=== PATIENT | female | born 1980 | race Caucasian/White ===

== ENCOUNTER 2016-08-01 19:37 | Emergency (ER) | payer OTHER ==
[~2016-08-01] VITALS: Ht 157.5 cm; Wt 90.7 kg
[~2016-08-01 19:37] MED LIST: ASPI-586 PO; FLUO10CA19 PO; HYDR-700 PO; PRD20T PO
--- OUTSIDE RECORDS SUMMARY | 2016-08-01 19:42 | XMS REPORT ---
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 Name Role Phone JAMARCUS OSORIO CP Unavailable Allergies, Adverse Reactions, Alerts Substance Reaction Event Type Zofran itching/ swelling Drug Allergy Prilosec itching/ swelling Drug Allergy Penicillin G Sodium stops heart Drug Allergy Lortab itching/ swelling Drug Allergy Problems Problem Type Condition Code Onset Dates Condition Status Assessment Headache, unspecified headache type R51 Active Assessment Acute non-recurrent frontal sinusitis J01.10 Active Assessment Weakness R53.1 Active Medications Medication Code System Code Instructions Start Date End Date Status Dosage Ibuprofen [facility] [address]-09 200 MG Orally every 6 hrs 1 tablet as needed Azithromycin [facility] [address]-20 250 MG Orally Once a day May 22, 2016 May 27, 2016 2 tablets on the first day, then 1 tablet daily for 4 days Procedures Procedure Coding System Code Date Office Visit, Est Pt., Level 3 CPT-4 36864 May 22, 2016 INFLUENZA ASSAY W/OPTIC CPT-4 62128 May 22, 2016 Vital Signs Date/Time: May 22, 2016 Cardiac Monitoring Heart Rate 80 bpm Weight 189.8 lbs Height 62 in BMI 34.71 Index Blood Pressure Diastolic 60 mmHg Blood Pressure Systolic 100 mmHg Results Name Result Date Reference Range Unit Abnormality Flag INFLUENZA A & B (IN HOUSE) ----Exp date [id number] ----INFLUENZA A negative [id number] ----INFLUENZA B negative [id number] ----Control + [id number] ----Lot # [id number] Summary Purpose [employer] Submission
[2016-08-01] MEDS ORDERED: LACTATED RINGERS 1,000 ML IV ONE (20:06)
[2016-08-01] MEDS ORDERED: FAMOTIDINE 20MG/2ML IV (PEPCID) IV STA ×2 (20:06→20:07)
[2016-08-01] MEDS ORDERED: NS IV 1000 ML 1,000 ML IV ONE (20:07)
[2016-08-01] MEDS ORDERED: PROMETHAZINE INJ 25 MG/ML (PHENERGAN) AMP IVP STA ×2 (20:19→22:02)
--- NOTE | 2016-08-01 20:45 | ED Abdominal Pain ---
General Chief Complaint: Abdominal/GI Problems Stated Complaint: N,V,D Nursing Triage Note: N/V/D X 3 WEEKS. PATIENT REPORTS SHE ISN'T ABLE TO KEEP ANYTHING DOWN DURING THIS TIME Sepsis Screen: No Definite Risk Source of Information: Patient, Spouse Exam Limitations: No Limitations History of Present Illness Time Seen By Provider: 20:10 Initial Comments 36 yo female patient presents to the ED with c/o N/V/D x3 wks. Patient states she is not able to keep anything down. Denies fevers, melena, hematochezia, hematemesis. Patient has not contacted her PCP for symptoms. Timing/Duration: Constant, Other (3 weeks) Severity/Quality: Cramping Location: Generalized Abdomen Radiation: No Radiation Activities at Onset: None Modifying Factors: Worsens With Eating Allergies and Home Medications Allergies Coded Allergies: Penicillins (Verified Allergy, Unknown, 04/17/16) acetaminophen (Verified Allergy, Unknown, 04/17/16) hydrocodone (Verified Allergy, Unknown, 04/17/16) omeprazole (Verified Allergy, Unknown, 04/17/16) ondansetron (Verified Allergy, Unknown, 04/17/16) Home Medications Nitrofurantoin Monohyd/M-Cryst 100 Mg Capsule #14 1 TAB PO BID Prescribed by: GARY NEVES on 08/01/162256 Promethazine HCl 25 Mg Supp.rect #10 25 MG RC Q6H PRN PRN NAUSEA/VOMITING Prescribed by: GARY NEVES on 08/01/162256 Review of Systems Constitutional: No chills, No dizziness, No fever, malaise EENTM: No Symptoms Reported Respiratory: No Symptoms Reported Cardiovascular: No Symptoms Reported Gastrointestinal: See HPIDenies Abdomen Distended, Abdominal Pain (abdominal cramping)Denies Blood Streaked Stools, Denies Constipated, Denies Diarrhea, Nausea Poor Appetite Poor Fluid IntakeDenies Rectal Bleeding, Vomiting Genitourinary: Denies Burning, Denies Discharge, Denies Frequency, Denies Flank Pain, Denies Hematuria, Denies Pain Musculoskeletal: no symptoms reported Skin: no symptoms reported Psychiatric/Neurological: No Symptoms Reported Endocrine: No Symptoms Reported All Other Systems Reviewed Negative Unless Noted: Yes (Negative excepted noted.) Past Aefwxmz-Wvdgkc-Bbjxwj Hx Patient Social History Alcohol Use: Denies Use Recreational Drug Use: No Smoking Status: Never a Smoker Recent Foreign Travel: No Contact w/Someone Who Travel: No Recent Infectious Disease Expo: No Recent Hopitalizations: No Physical Abuse Screen: No Sexual Abuse: No Immunizations Up To Date Tetanus Booster (TDap): Unknown Seasonal Allergies Seasonal Allergies: No Surgeries HX Surgeries: Yes Surgeries: Gallbladder, Orthopedic, Tubal Ligation Respiratory Hx Respiratory Disorders: No Cardiovascular Hx Cardiac Disorders: No Cardiac Disorders: Heart Attack Neurological Hx Neurological Disorders: Yes Neurological Disorders: Headaches /Migraines 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 System Hx 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 Disorders: Yes [employer]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 Genitourinary Hx Genitourinary Disorders: Yes Genitourinary Disorders: Kidney Stones Gastrointestinal Hx Gastrointestinal Disorders: No Musculoskeletal Hx Musculoskeletal Disorders: No Endocrine Hx Endocrine Disorders: No HEENT HX ENT Disorders: No Cancer Hx Cancer: No Psychosocial Hx Psychiatric Problems: Yes Behavioral Health Disorders: Anxiety Integumentary HX Skin/Integumentary Disorder: No Blood Transfusions Hx Blood Disorders: No Adverse Reaction to a Blood Tr: No Reviewed Nursing Assessment Reviewed/Agree w Nursing PMH: Yes Family Medical History Significant Family History: No Pertinent Family Hx Physical Exam Vital Signs Capillary Refill : Less Than 3 Seconds General Appearance: WD/WN no apparent distress HEENT: PERRL/EOMI pharynx normal Neck: supple normal inspection Respiratory: no respiratory distress wheezing expiration Cardiovascular: normal peripheral pulses regular rate, rhythm no edema no murmur Gastrointestinal: normal bowel sounds non tender (unable to reproduce tenderness on exam.) soft no organomegalyNo distended Extremities: normal inspection no pedal edema normal capillary refill Neurologic/Psychiatric: alert normal mood/affect oriented x 3 Skin: normal color warm/dry Progress/Results/Core Measures Results/Orders Lab Results Laboratory Tests Test 08/01/16 20:39 Range/Units Alanine Aminotransferase (ALT/SGPT) 31 0-55 U/L Albumin 4.2 3.2-4.5 G/DL Alkaline Phosphatase 84 40-136 U/L Amylase Level 72 25-125 U/L Anion Gap 11 5-14 MMOL/L Aspartate Amino Transf (AST/SGOT) 26 5-34 U/L BUN/Creatinine Ratio 17 Basophils # (Auto) 0.0 0.0-0.1 10^3/uL Basophils (%) (Auto) 1 0-10 % Blood Urea Nitrogen 15 7-18 MG/DL Calcium Level 9.4 8.5-10.1 MG/DL Carbon Dioxide Level 23 21-32 MMOL/L Chloride Level 107 98-107 MMOL/L Creatinine 0.88 0.60-1.30 MG/DL Eosinophils # (Auto) 0.2 0.0-0.3 10^3/uL Eosinophils (%) (Auto) 3 0-10 % Estimat Glomerular Filtration Rate > 60 Glucose Level 90 70-105 MG/DL Hematocrit 40 35-52 % Hemoglobin 13.8 11.5-16.0 G/DL Lipase 47 8-78 U/L Lymphocytes # (Auto) 2.1 1.0-4.0 X 10^3 Lymphocytes (%) (Auto) 32 12-44 % Magnesium Level 2.1 1.8-2.4 MG/DL Mean Corpuscular Hemoglobin 30 25-34 PG Mean Corpuscular Hemoglobin Concent 34 32-36 G/DL Mean Corpuscular Volume 87 80-99 FL Mean Platelet Volume 9.1 7.4-10.4 FL Monocytes # (Auto) 0.5 0.0-1.0 X 10^3 Monocytes (%) (Auto) 8 0-12 % Neutrophils # (Auto) 3.8 1.8-7.8 X 10^3 Neutrophils (%) (Auto) 57 42-75 % Platelet Count 322 130-400 10^3/uL Potassium Level 4.1 3.6-5.0 MMOL/L Red Blood Count 4.67 4.35-5.85 10^6/uL Red Cell Distribution Width 14.1 10.0-14.5 % Serum Test, Qualitative NEGATIVE NEGATIVE Sodium Level 141 135-145 MMOL/L TSH [place] Testing 1.06 0.35-4.94 UIU/ML Total Bilirubin 0.4 0.1-1.0 MG/DL Total Protein 7.4 6.4-8.2 G/DL Troponin I < 0.30 <0.30 NG/ML Urine Amorphous Sediment MOD RAINA PHOSPHATE H /LPF Urine Bacteria FEW H /HPF Urine Bilirubin NEGATIVE NEGATIVE Urine Casts NONE /LPF Urine Clarity SLIGHTLY CLOUDY Urine Color YELLOW Urine Crystals PRESENT H /LPF Urine Culture Indicated YES Urine Glucose (UA) NEGATIVE NEGATIVE Urine Ketones NEGATIVE NEGATIVE Urine Leukocyte Esterase 3+ H NEGATIVE Urine Mucus NEGATIVE /LPF Urine Nitrite NEGATIVE NEGATIVE Urine Protein NEGATIVE NEGATIVE Urine RBC NONE /HPF Urine RBC (Auto) NEGATIVE NEGATIVE Urine Specific [place] 1.015 L 1.016-1.022 Urine Squamous Epithelial Cells 2-5 /HPF Urine Urobilinogen NORMAL NORMAL MG/DL Urine WBC 10-25 H /HPF Urine pH 8 5-9 White Blood Count 6.6 4.3-11.0 10^3/uL Micro Results Microbiology 08/01/16 Urine Culture - Final, Complete My Orders Orders-GARY NEVES PA Ns Iv 1000 Ml (Sodium Chloride 0.9%) (08/01/16 20:07) Famotidine Injection (Pepcid Injection) (08/01/16 20:07) Promethazine Injection (Phenergan Injec (08/01/16 20:19) Magnesium (08/01/16 20:59) Thyroid Analyzer (08/01/16 20:59) Troponin I (08/01/16 20:59) Ekg Tracing (08/01/16 20:59) Chest 1 View, Ap/Pa Only (08/01/16 20:59) Promethazine Injection (Phenergan Injec (08/01/16 22:02) Ketorolac Injection (Toradol Injection) (08/01/16 22:02) Rx-Nitrofurantoin [place] (Rx-Macrobid) (08/01/16 22:02) Iv Push [employer] Ed (08/01/16 ) Medications Given in ED Vital Signs/I&O Blood Pressure Mean: 101 Diagnostic Imaging Diagonstic Imaging: Xray Plain Films/CT/US/NM/MRI: chest Comments Findings: The lungs are clear. The heart is not enlarged. No hilar adenopathy. No pulmonary edema. No pneumothorax or pleural effusion. IMPRESSION: Normal portable chest. Dictated by: Dictated on workstation # [id number] Reviewed: Reviewed by Me (radiology report reviewed by me. ) Departure Communication Progress Notes All laboratory and diagnostic findings discussed with the patient. Patient noted to be eating and drinking w/o difficulty in the ED. No vomiting or diarrhea in the ED. Proceed with discharge to home. Impression Impression: Primary Impression: Nausea, vomiting and diarrhea Additional Impression: Urinary tract infection Disposition: HOME, SELF-CARE Condition: Improved Departure-Patient Inst. Decision time for Depature: 22:12 Referrals: NO,LOCAL PHYSICIAN (PCP) Primary Care Physician [facility] Patient Instructions: Diarrhea in Adolescents and Adults, Nausea and Vomiting, Adult (DC) Add. Discharge Instructions: All discharge instructions reviewed with patient and/or family. Voiced understanding. Medications as instructed. Ibuprofen 800 mg by mouth every 8 hours as needed for pain. Push fluids. Follow-up with your primary care physician in the next 1-2 days for recheck. Stool cultures as an outpatient. Return to the emergency department for worsened pain, fever, vomiting, vomiting blood, rectal bleeding, black stools, decreased urination, or any other concerns. Scripts Nitrofurantoin Monohyd/M-Cryst (Macrobid 100 mg Capsule)100 Mg Capsule1 Tab PO BID #14 CAP Ref 0 Prov:GARY NEVES 08/01/16 Promethazine HCl (Phenergan)25 Mg Supp.rect25 Mg RC Q6H PRN NAUSEA/VOMITING #10 SUPP.RECT Ref 0 Prov:GARY NEVES 08/01/16 GARY NEVES Aug 01, 2016 20:45
[2016-08-01 20:50] LABS: BASOPHILS % (AUTO) 1 % (0-10); EOSINOPHILS # (AUTO) 0.2 10^3/uL (0.0-0.3); EOSINOPHILS % (AUTO) 3 % (0-10); LYMPHOCYTES # (AUTO) 2.1 X 10^3 (1.0-4.0); LYMPHOCYTES % (AUTO) 32 % (12-44); MEAN CORPUSCULAR HEMOGLOBIN 30 PG (25-34); MEAN CORPUSCULAR HGB CONC 34 G/DL (32-36); MEAN CORPUSCULAR VOLUME 87 FL (80-99); MEAN PLATELET VOLUME 9.1 FL (7.4-10.4); MONOCYTES # (AUTO) 0.5 X 10^3 (0.0-1.0); MONOCYTES % (AUTO) 8 % (0-12); NEUTROPHILS # (AUTO) 3.8 X 10^3 (1.8-7.8); NEUTROPHILS % (AUTO) 57 % (42-75); PLATELET COUNT 322 10^3/uL (130-400); RED BLOOD COUNT 4.67 10^6/uL (4.35-5.85); RED CELL DISTRIBUTION WIDTH 14.1 % (10.0-14.5); WHITE BLOOD COUNT 6.6 10^3/uL (4.3-11.0)
[2016-08-01 20:51] LABS: BILIRUBIN,URINE NEGATIVE (NEGATIVE); KETONES,URINE NEGATIVE (NEGATIVE); LEUKOCYTE ESTERASE ,URINE 3+ (NEGATIVE); NITRITE,URINE NEGATIVE (NEGATIVE); PH,URINE 8 (5-9); PROTEIN,URINE NEGATIVE (NEGATIVE); UROBILINOGEN,URINE NORMAL (NORMAL)
[2016-08-01 21:12] LABS: ALANINE AMINOTRANSFERASE 31 U/L (0-55); ALBUMIN 4.2 G/DL (3.2-4.5); AMYLASE 72 U/L (25-125); ANION GAP 11 MMOL/L (5-14); ASPARTATE AMINO TRANSFERASE 26 U/L (5-34); BILIRUBIN,TOTAL 0.4 MG/DL (0.1-1.0); BLOOD UREA NITROGEN 15 MG/DL (7-18); BUN/CREATININE RATIO 17; CALCIUM 9.4 MG/DL (8.5-10.1); CARBON DIOXIDE 23 MMOL/L (21-32); CHLORIDE 107 MMOL/L (98-107); CREATININE SERUM 0.88 MG/DL (0.60-1.30); GFR ESTIMATED > 60; GLUCOSE 90 MG/DL (70-105); LIPASE 47 U/L (8-78); POTASSIUM 4.1 MMOL/L (3.6-5.0); SODIUM 141 MMOL/L (135-145); TOTAL PROTEIN 7.4 G/DL (6.4-8.2)
--- NOTE | 2016-08-01 21:28 | Diagnostic Imaging Report ---
Indication: Chest pain. Comparison: 05/10/2016. Findings: The lungs are clear. The heart is not enlarged. No hilar adenopathy. No pulmonary edema. No pneumothorax or pleural effusion. IMPRESSION: Normal portable chest. Dictated by: Dictated on workstation # [id number]
[2016-08-01 21:39] LABS: MAGNESIUM 2.1 MG/DL (1.8-2.4); TROPONIN I < 0.30 NG/ML (<0.30)
[2016-08-01] MEDS ORDERED: RX-NITROFURANTOIN 100 MG (MACROBID) CAP PPK#2 PO STA (22:02)
[2016-08-01] MEDS ORDERED: KETOROLAC 30 MG/ML VIAL IVP STA (22:02)
[2016-08-01] MEDS ORDERED: PROM25SU43 RC ×2 (22:14→22:57)
[2016-08-01] MEDS ORDERED: NITR-65 PO ×2 (22:14→22:57)
[2016-08-01 23:04] VITALS: BP 120/82
== END 2016-08-01 23:03 | disposition home or self-care (01) ==
LOC: EDUNIT# 19:37 → ER 19:39
DX: R11.2 Nausea with vomiting, unspecified (principal); R19.7 Diarrhea, unspecified; N39.0 Urinary tract infection, site not specified
CPT/HCPCS: 36415; 71010; 80053; 81000; 82150; 83690; 83735; 84443; 84484; 84703; 85025; 87088; 93005; 96361; 96374; 96375; 96376

== ENCOUNTER 2016-08-25 14:15 | Emergency (ER) | payer OTHER ==
[~2016-08-25] VITALS: Ht 157.5 cm; Wt 90.7 kg
[~2016-08-25 14:15] MED LIST changes: +NITR-65 PO; +PROM25SU43 RC
[2016-08-25] MEDS ORDERED: fentaNYL INJECTION 100 MCG/2 ML AMP IVP ONE ×2 (14:30→15:30)
--- NOTE | 2016-08-25 14:34 | ED Abdominal Pain ---
General Stated Complaint: LOWER ABD/BACK PAIN Source of Information: Patient Exam Limitations: No Limitations History of Present Illness Time Seen By Provider: 14:32 Initial Comments To ER with low back pain and suprapubic abdominal pain. This began suddenly 3 hours ago while at work. She felt the urge to have bowel, so she did which was diarrhea without blood or mucus. No nausea or vomiting.. However, this did not relieve her pain which seems to be more located on the right side. She has a history of kidney stones and she does still have her appendix. Timing/Duration: 1-2 Days Severity/Quality: Moderate Radiation: No Radiation Associated Symptoms: No Fever/Chills, No Nausea/Vomiting Allergies and Home Medications Allergies Coded Allergies: Penicillins (Verified Allergy, Unknown, 04/17/16) acetaminophen (Verified Allergy, Unknown, 04/17/16) hydrocodone (Verified Allergy, Unknown, 04/17/16) omeprazole (Verified Allergy, Unknown, 04/17/16) ondansetron (Verified Allergy, Unknown, 04/17/16) Home Medications Oxycodone HCl/Acetaminophen 1 Each Tablet #14 1 EACH PO Q4H PRN PRN PAIN Prescribed by: JENNIFER FOURNIER on 08/25/16 1536 Sulfamethoxazole/Trimethoprim 1 Each Tablet #10 1 EACH PO BID Prescribed by: JENNIFER FOURNIER on 08/25/166 Review of Systems Constitutional: see HPI EENTM: No Symptoms Reported Respiratory: No Symptoms Reported Cardiovascular: No Symptoms Reported Gastrointestinal: See HPI Abdominal Pain Genitourinary: No Symptoms Reported Musculoskeletal: no symptoms reported Skin: no symptoms reported Psychiatric/Neurological: No Symptoms Reported Endocrine: No Symptoms Reported Hematologic/Lymphatic: No Symptoms Reported Past Yhmftpg-Zlagmx-Tbgdig Hx Patient Social History Recent Foreign Travel: No Contact w/Someone Who Travel: No Recent Hopitalizations: No Immunizations Up To Date Tetanus Booster (TDap): Unknown Seasonal Allergies Seasonal Allergies: No Surgeries HX Surgeries: Yes Surgeries: Gallbladder, Orthopedic, Tubal Ligation Respiratory Hx Respiratory Disorders: No Cardiovascular Hx Cardiac Disorders: No Cardiac Disorders: Heart Attack Neurological Hx Neurological Disorders: Yes Neurological Disorders: Headaches /Migraines 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 System 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 Genitourinary Hx Genitourinary Disorders: Yes Genitourinary Disorders: Kidney Stones Gastrointestinal Hx Gastrointestinal Disorders: No Musculoskeletal Hx Musculoskeletal Disorders: No Endocrine Hx Endocrine Disorders: No HEENT HX ENT Disorders: No Cancer Hx Cancer: No Psychosocial Hx Psychiatric Problems: Yes Behavioral Health Disorders: Anxiety Integumentary HX Skin/Integumentary Disorder: No Blood Transfusions Hx Blood Disorders: No Adverse Reaction to a Blood Tr: No Family Medical History Significant Family History: No Pertinent Family Hx Physical Exam Vital Signs VS - Last 72 Hours, by Label 08/25/16 08/25/16 08/25/16 08/25/16 14:25 14:37 15:23 16:00 Temp 98.1 98.5 98.5 98.5 Pulse 86 Resp 16 B/P 126/75 Pulse Ox 94 O2 Delivery Room Air Capillary Refill : General Appearance: WD/WN no apparent distress HEENT: PERRL/EOMI normal ENT inspection Neck: non-tender full range of motion Respiratory: no respiratory distress no accessory muscle use Gastrointestinal: normal bowel sounds soft tenderness other (tender bilateral lower quadrants, worse on the right. ) Extremities: normal range of motion non-tender Neurologic/Psychiatric: alert normal mood/affect oriented x 3 Skin: normal color warm/dry Progress/Results/Core Measures Results/Orders Lab Results Laboratory Tests Test 08/25/16 14:22 08/25/16 14:25 Range/Units Urine Bacteria MODERATE H /HPF Urine Bilirubin NEGATIVE NEGATIVE Urine Casts NONE /LPF Urine Clarity CLEAR Urine Color YELLOW Urine Crystals NONE /LPF Urine Culture Indicated NO Urine Glucose (UA) NEGATIVE NEGATIVE Urine Ketones NEGATIVE NEGATIVE Urine Leukocyte Esterase 3+ H NEGATIVE Urine Mucus NEGATIVE /LPF Urine Nitrite NEGATIVE NEGATIVE Urine Protein NEGATIVE NEGATIVE Urine RBC NONE /HPF Urine RBC (Auto) NEGATIVE NEGATIVE Urine Specific [place] 1.025 H 1.016-1.022 Urine Squamous Epithelial Cells TNTC H /HPF Urine Urobilinogen NORMAL NORMAL MG/DL Urine WBC 25-50 H /HPF Urine Yeast FEW H /HPF Urine pH 5 5-9 Alanine Aminotransferase (ALT/SGPT) 13 0-55 U/L Albumin 4.1 3.2-4.5 G/DL Alkaline Phosphatase 58 40-136 U/L Anion Gap 7 5-14 MMOL/L Aspartate Amino Transf (AST/SGOT) 16 5-34 U/L BUN/Creatinine Ratio 14 Basophils # (Auto) 0.0 0.0-0.1 10^3/uL Basophils (%) (Auto) 0 0-10 % Blood Urea Nitrogen 14 7-18 MG/DL Calcium Level 8.7 8.5-10.1 MG/DL Carbon Dioxide Level 23 21-32 MMOL/L Chloride Level 112 H 98-107 MMOL/L Creatinine 1.00 0.60-1.30 MG/DL Eosinophils # (Auto) 0.1 0.0-0.3 10^3/uL Eosinophils (%) (Auto) 1 0-10 % Estimat Glomerular Filtration Rate > 60 Glucose Level 87 70-105 MG/DL Hematocrit 38 35-52 % Hemoglobin 13.0 11.5-16.0 G/DL Lymphocytes # (Auto) 2.8 1.0-4.0 X 10^3 Lymphocytes (%) (Auto) 31 12-44 % Mean Corpuscular Hemoglobin 30 25-34 PG Mean Corpuscular Hemoglobin Concent 34 32-36 G/DL Mean Corpuscular Volume 87 80-99 FL Mean Platelet Volume 9.1 7.4-10.4 FL Monocytes # (Auto) 0.6 0.0-1.0 X 10^3 Monocytes (%) (Auto) 6 0-12 % Neutrophils # (Auto) 5.4 1.8-7.8 X 10^3 Neutrophils (%) (Auto) 61 42-75 % Platelet Count 331 130-400 10^3/uL Potassium Level 3.9 3.6-5.0 MMOL/L Red Blood Count 4.35 4.35-5.85 10^6/uL Red Cell Distribution Width 14.0 10.0-14.5 % Sodium Level 142 135-145 MMOL/L Total Bilirubin 0.3 0.1-1.0 MG/DL Total Protein 6.7 6.4-8.2 G/DL White Blood Count 8.8 4.3-11.0 10^3/uL My Orders Orders-JENNIFER FOURNIER APRN Ua Culture If Indicated (08/25/16 14:17) Urine Bedside (08/25/16 14:17) Saline Lock/Iv-Start (08/25/16 14:30) Urine Bedside (08/25/16 14:30) Cbc With Automated Diff (08/25/16 14:30) Comprehensive Metabolic Panel (08/25/16 14:30) Fentanyl Injection (Sublimaze Injection (08/25/16 14:30) Ct Abd/Pelv W (Appendicitis) (08/25/16 14:34) Iohexol Injection (Omnipaque 350 Mg/Ml 1 (08/25/16 14:45) Ns (Ivpb) (Sodium Chloride 0.9% Ivpb Bag (08/25/16 14:45) Ketorolac Injection (Toradol Injection) (08/25/16 15:30) Us Non Ob Pelvis Comp/Transvag (08/25/16 15:17) Fentanyl Injection (Sublimaze Injection (08/25/16 15:30) Us Hepatic (Liver)[id number] (08/25/16 15:25) Medications Given in ED Current Medications Medications Dose Ordered Sig/Bienvenido Route Start Time Stop Time Status Last Admin Dose Admin Fentanyl Citrate 50 mcg ONCE ONCE IVP 08/25/16 14:30 08/25/16 14:32 DC 08/25/16 14:37 50 MCG Fentanyl Citrate 75 mcg ONCE ONCE IVP 08/25/16 15:30 08/25/16 15:31 DC 08/25/16 16:00 75 MCG Iohexol 100 ml ONCE ONCE IV 08/25/16 14:45 08/25/16 14:46 DC 08/25/16 14:53 100 ML Ketorolac Tromethamine 30 mg ONCE ONCE IVP 08/25/16 15:30 08/25/16 15:31 DC 08/25/16 15:23 30 MG Sodium Chloride 100 ml ONCE ONCE IV 08/25/16 14:45 08/25/16 14:46 DC 08/25/16 14:53 80 ML Vital Signs/I&O Vital Sign - Last 12Hours 08/25/16 08/25/16 08/25/16 08/25/16 14:25 14:37 15:23 16:00 Temp 98.1 98.5 98.5 98.5 Pulse 86 Resp 16 B/P 126/75 Pulse Ox 94 O2 Delivery Room Air Diagnostic Imaging Diagonstic Imaging: CT Comments NAME: LAILA MENDOZA [facility] REC#: [id number] PT STATUS: REG ER : 1980 PHYSICIAN: JENNIFER FOURNIER APRN ADMIT DATE: 08/25/16/ER Draft Date of Exam:08/25/16 CT ABD/PELV W (APPENDICITIS) PROCEDURE: CT abdomen and pelvis with contrast, rule out appendicitis. TECHNIQUE: Multiple contiguous axial images were obtained through the abdomen and pelvis after the administration of intravenous contrast. INDICATION: Right lower quadrant pain. COMPARISON: There are no prior studies available for comparison. FINDINGS: The appendix was not particularly well visualized. The appendix does not seem to be abnormally thickened and there is no significant distortion of the periappendiceal fat to suggest acute appendicitis. The images through the pelvis do show that there are sizable areas of low density on each side of the uterine fundus. This includes a 4.1 x 3.9 cm rounded area of low density on the right and a 3.0 x 3.9 cm similar appearing finding on the left. These may represent cysts associated with the ovaries. If further study is desired, then ultrasound would be recommended. The uterus, itself, is prominent and the endometrial lining measures 22 mm. This finding is nonspecific. Correlation with patient's menstrual cycle is recommended. The urinary bladder is grossly unremarkable. There is no pelvic mass or free fluid collection noted. The liver does not appear to be enlarged. On the initial precontrast series, there was a 1.4 x 1.1 cm area of low density in the left lobe of the liver. This finding is not as conspicuous on the delayed series. This could represent a small cyst or perhaps a hemangioma. I would recommend that ultrasound of the liver be performed for further study. The spleen is prominent but not enlarged. The pancreas, the adrenals, the kidneys, the aorta and inferior vena cava show no sign of an acute abnormality. The gallbladder is surgically absent. The stomach is partially filled with particulate matter and consequently difficult to assess. The lung bases are clear. The bone windows show no sign of a fracture or of a destructive lesion. On the manager enterprise content management film, there is a small metallic density overlying the mid thoracic spine. This may be extraneous to the patient. IMPRESSION: 1. The appendix is not well visualized but there are no indirect signs of acute appendicitis. 2. There do appear to be sizable bilateral ovarian cysts. If further study is desired, then ultrasound would be recommended. 3. There is no acute abnormality in the abdomen or pelvis noted otherwise. 4. The area of diminished density within the left lobe of the liver may represent a cyst. A hemangioma should also be considered. Recommendations as above. 5. These results will be discussed with Jennifer Fournier APRN. Dictated on workstation # [id number] Dict: 08/25/16 1517 Trans: 08/25/16 1533 [facility] [id number] Interpreted by: SIOBHAN VALDES MD Electronically signed by: Departure Impression Impression: Primary Impression: Ovarian cyst Qualified Code: N83.201 - Unspecified ovarian cyst, right side Additional Impression: Urinary tract infection Qualified Code: N30.00 - Acute cystitis without hematuria Disposition: ADMITTED INPATIENT Condition: Stable Departure-Patient Inst. Decision time for Depature: 15:33 Referrals: ZAN FRAZIER DENNIS G MD MCNULTY, ERIN N MD NO,LOCAL PHYSICIAN (PCP) Primary Care Physician DILIP OTOOLE DO Patient Instructions: Ovarian Cyst (DC), Urinary Tract Infection, Adult (DC) Add. Discharge Instructions: 1. Return to ER for any concerns 2. Pain medication and antibiotics as directed 3. Follow-up with the physicians listed next week Scripts Oxycodone HCl/Acetaminophen (Percocet 5-325 mg Tablet)1 Each Tablet1 Each PO Q4H PRN PAIN #14 TAB Prov:JENNIFER FOURNIER APRN 08/25/16 Sulfamethoxazole/Trimethoprim (Bactrim Ds Tablet)1 Each Tablet1 Each PO BID #10 TAB Prov:JENNIFER FOURNIER APRN 08/25/16 JENNIFER FOURNIER APRN Aug 25, 2016 14:34
[2016-08-25 14:35] LABS: BILIRUBIN,URINE NEGATIVE (NEGATIVE); KETONES,URINE NEGATIVE (NEGATIVE); LEUKOCYTE ESTERASE ,URINE 3+ (NEGATIVE); NITRITE,URINE NEGATIVE (NEGATIVE); PH,URINE 5 (5-9); PROTEIN,URINE NEGATIVE (NEGATIVE); UROBILINOGEN,URINE NORMAL (NORMAL)
[2016-08-25 14:36] LABS: BASOPHILS % (AUTO) 0 % (0-10); EOSINOPHILS # (AUTO) 0.1 10^3/uL (0.0-0.3); EOSINOPHILS % (AUTO) 1 % (0-10); LYMPHOCYTES # (AUTO) 2.8 X 10^3 (1.0-4.0); LYMPHOCYTES % (AUTO) 31 % (12-44); MEAN CORPUSCULAR HEMOGLOBIN 30 PG (25-34); MEAN CORPUSCULAR HGB CONC 34 G/DL (32-36); MEAN CORPUSCULAR VOLUME 87 FL (80-99); MEAN PLATELET VOLUME 9.1 FL (7.4-10.4); MONOCYTES # (AUTO) 0.6 X 10^3 (0.0-1.0); MONOCYTES % (AUTO) 6 % (0-12); NEUTROPHILS # (AUTO) 5.4 X 10^3 (1.8-7.8); NEUTROPHILS % (AUTO) 61 % (42-75); PLATELET COUNT 331 10^3/uL (130-400); RED BLOOD COUNT 4.35 10^6/uL (4.35-5.85); WHITE BLOOD COUNT 8.8 10^3/uL (4.3-11.0)
[2016-08-25 14:44] LABS: SQUAMOUS EPITHELIAL CELL,UR TNTC /HPF; WBC,URINE 25-50 /HPF
[2016-08-25 14:45] LABS: YEAST,URINE FEW /HPF
[2016-08-25] MEDS ORDERED: IOHEXOL 350 MG/ML 100 ML (OMNIPAQUE 350) VIAL IV ONE (14:45)
[2016-08-25] MEDS ORDERED: NS 100 ML (IVPB) BAG IV ONE (14:45)
[2016-08-25 14:52] LABS: ALANINE AMINOTRANSFERASE 13 U/L (0-55); ALBUMIN 4.1 G/DL (3.2-4.5); ANION GAP 7 MMOL/L (5-14); ASPARTATE AMINO TRANSFERASE 16 U/L (5-34); BILIRUBIN,TOTAL 0.3 MG/DL (0.1-1.0); BLOOD UREA NITROGEN 14 MG/DL (7-18); BUN/CREATININE RATIO 14; CALCIUM 8.7 MG/DL (8.5-10.1); CARBON DIOXIDE 23 MMOL/L (21-32); CHLORIDE 112 MMOL/L (98-107); GFR ESTIMATED > 60; GLUCOSE 87 MG/DL (70-105); POTASSIUM 3.9 MMOL/L (3.6-5.0); SODIUM 142 MMOL/L (135-145); TOTAL PROTEIN 6.7 G/DL (6.4-8.2)
[2016-08-25] MEDS ORDERED: KETOROLAC 30 MG/ML VIAL IVP ONE (15:30)
--- NOTE | 2016-08-25 15:34 | Diagnostic Imaging Report ---
PROCEDURE: CT abdomen and pelvis with contrast, rule out appendicitis. TECHNIQUE: Multiple contiguous axial images were obtained through the abdomen and pelvis after the administration of intravenous contrast. INDICATION: Right lower quadrant pain. COMPARISON: There are no prior studies available for comparison. FINDINGS: The appendix was not particularly well visualized. The appendix does not seem to be abnormally thickened and there is no significant distortion of the periappendiceal fat to suggest acute appendicitis. The images through the pelvis do show that there are sizable areas of low density on each side of the uterine fundus. This includes a 4.1 x 3.9 cm rounded area of low density on the right and a 3.0 x 3.9 cm similar appearing finding on the left. These may represent cysts associated with the ovaries. If further study is desired, then ultrasound would be recommended. The uterus, itself, is prominent and the endometrial lining measures 22 mm. This finding is nonspecific. Correlation with patient's menstrual cycle is recommended. The urinary bladder is grossly unremarkable. There is no pelvic mass or free fluid collection noted. The liver does not appear to be enlarged. On the initial precontrast series, there was a 1.4 x 1.1 cm area of low density in the left lobe of the liver. This finding is not as conspicuous on the delayed series. This could represent a small cyst or perhaps a hemangioma. I would recommend that ultrasound of the liver be performed for further study. The spleen is prominent but not enlarged. The pancreas, the adrenals, the kidneys, the aorta and inferior vena cava show no sign of an acute abnormality. The gallbladder is surgically absent. The stomach is partially filled with particulate matter and consequently difficult to assess. The lung bases are clear. The bone windows show no sign of a fracture or of a destructive lesion. On the chain mortiser operator film, there is a small metallic density overlying the mid thoracic spine. This may be extraneous to the patient. IMPRESSION: 1. The appendix is not well visualized but there are no indirect signs of acute appendicitis. 2. There do appear to be sizable bilateral ovarian cysts. If further study is desired, then ultrasound would be recommended. 3. There is no acute abnormality in the abdomen or pelvis noted otherwise. 4. The area of diminished density within the left lobe of the liver may represent a cyst. A hemangioma should also be considered. Recommendations as above. 5. These results were discussed with Siddhartha Fournier APRN. Dictated by: Dictated on workstation # [id number]
[2016-08-25] MEDS ORDERED: SULF1TAB35 PO (15:36)
[2016-08-25] MEDS ORDERED: OXYC-197 PO (15:36)
[2016-08-25 16:20] VITALS: BP 125/68
--- NOTE | 2016-08-25 16:22 | Diagnostic Imaging Report ---
INDICATION: Severe pelvic pain and rectal pressure, right greater than left. COMPARISON: None. DISCUSSION: Transabdominal and transvaginal sonographic evaluation of the pelvis was performed. The uterus is mildly enlarged measuring 12.8 x 7.6 x 7.4 cm. A 4.6 cm solid mass within the uterine fundus is most consistent with a fibroid. Normal endometrial thickness measuring 1.1 cm. The ovaries appear normal in echotexture and size bilaterally with normal color Doppler blood flow. The right ovary measures 4.9 x 4.0 x 3.9 cm. The left ovary measures 5.4 x 4.0 x 3.4 cm. Dominant functional follicles are noted within the bilateral ovaries, which do not require further sonographic followup though could account for patient's symptoms. No abnormal adnexal mass or fluid. IMPRESSION: 1. Uterine fibroid. 2. Dominant functional follicles are noted within the bilateral ovaries, which is a benign finding though could account for patient's pain. Dictated by: Dictated on workstation # [id number]
--- NOTE | 2016-08-25 16:25 | Diagnostic Imaging Report ---
INDICATION: Liver lesion on CT. TECHNIQUE: Ultrasound of the liver and right upper quadrant was performed in a routine fashion. FINDINGS: The liver shows overall normal echogenicity. There is a lesion in the left lobe with well-defined echogenic appearance, measuring about 1.7 x 2.0 x 1.9 cm. This has a sonographic appearance of hemangioma. There is no other focal liver lesion. Patient has had prior cholecystectomy. The common duct is not seen but there is no intrahepatic biliary dilatation. Pancreas is partially obscured due to overlying gas. Right kidney was normal and measured 11.8 cm in length. There is no ascites. IMPRESSION: Well-defined hyperechoic lesion in left lobe of liver which corresponds to CT abnormality. This is most likely hemangioma based on ultrasound appearance. Consider followup as clinically warranted. Patient has had prior cholecystectomy. There is no other abnormal finding. Dictated by: Dictated on workstation # [id number]
== END 2016-08-25 16:20 | disposition home or self-care (01) ==
LOC: EDUNIT# 14:15 → ER 14:17
DX: N83.202 Unspecified ovarian cyst, left side (principal); N83.201 Unspecified ovarian cyst, right side; K76.9 Liver disease, unspecified
CPT/HCPCS: 36415; 74177; 76705; 76830; 76856; 80053; 81000; 84703; 85025; 96374; 96375; 96376

== ENCOUNTER 2016-09-15 18:12 | Emergency (ER) | payer OTHER ==
[~2016-09-15] VITALS: Ht 157.5 cm; Wt 90.7 kg
[~2016-09-15 18:12] MED LIST changes: +OXYC-197 PO; +SULF1TAB35 PO
--- NOTE | 2016-09-15 19:51 | ED GU-Female ---
General Chief Complaint: Abdominal/GI Problems Stated Complaint: VAGINAL PAIN Nursing Triage Note: Pt c/o lower abd pain/suprapubic pain. Pt reports she has a known ovarian cyst and ovarian tumors and has appt scheduled w/ Dr Frazier for this coming Sunday (09/19). Pt reports she was at the store tonight when pain suddenly became much worse. Nursing Sepsis Screen: No Definite Risk Source: patient, spouse Exam Limitations: no limitations History of Present Illness Time seen by provider: 19:51 Initial Comments 36-year-old female patient presents to the emergency department complains of lower abdominal pain for approximately one week. Patient states she does have an appointment Dr. Frazier on September 19 for evaluation. Patient has a history of known ovarian cyst and ovarian tumors. Reports pain is worse today. Patient does report nausea without vomiting. Denies fevers, vaginal discharge , vaginal bleeding, dysuria, frequency, hematuria. Timing/Duration: week Severity/Quality: aching, cramping Location: suprapubic Radiation: none Activities at Onset: none Prior Genitourinary Problems: similar symptoms Sexual [place] History: less than 2 months ago, single partner Modifying Factors: Worsens With Movement, Worsens With Palpation Allergies and Home Medications Allergies Coded Allergies: Penicillins (Verified Allergy, Unknown, 04/17/16) acetaminophen (Verified Allergy, Unknown, 04/17/16) hydrocodone (Verified Allergy, Unknown, 04/17/16) omeprazole (Verified Allergy, Unknown, 04/17/16) ondansetron (Verified Allergy, Unknown, 04/17/16) Home Medications Dicyclomine HCl 10 Mg Capsule, 10 MG PO Q4H, (Reported) Docusate Sodium 100 Mg Capsule, 100 MG PO BID PRN for CONSTIPATION, #40 Prescribed by: ZAN FRAZIER on 10/05/16 1244 Ibuprofen 600 Mg Tablet, 600 MG PO Q6H PRN for PAIN, #80 Prescribed by: ZAN FRAZIER on 10/05/16 1244 Oxycodone HCl/Acetaminophen 1 Each Tablet, 1 EACH PO Q4H PRN for MODERATE PAIN for 50 Days Prescribed by: ZAN FRAZIER on 10/05/16 1244 Polyethylene Glycol 3350 119 Gm Powder, 17 GM PO HS, #1 Ref 0 Prescribed by: GARY NEVES on 10/10/16 2205 Promethazine HCl 25 Mg Tablet, 25 MG PO Q6H PRN for NAUSEA/VOMITING, #10 Ref 0 Prescribed by: GARY NEVES on 10/10/16 2205 Simethicone 80 Mg Tab.chew, 40 MG PO TID PRN for INDIGESTION, #40 Prescribed by: ZNA FRAZIER on 10/05/16 1244 Zolpidem Tartrate 5 Mg Tablet, 5 MG PO HS, (Reported) Constitutional: No chills, No dizziness, No fever, No malaise Respiratory: no symptoms reported Cardiovascular: no symptoms reported Gastrointestinal: see HPI, abdominal pain, No constipation, No diarrhea, loss of appetite, No melena, nausea, No vomiting Genitourinary: see HPI, denies burning, denies discharge, denies dysuria, denies frequency, denies flank pain, denies hematuria, pain Musculoskeletal: No back pain Skin: no symptoms reported Psychiatric/Neurological: No Symptoms Reported All Other Systemes Reviewed Negative Unless Noted: Yes (Negative excepted noted.) Past Qfwlgab-Cqqtcj-Rdxutt Hx Patient Social History Alcohol Use: Denies Use Recreational Drug Use: No Smoking Status: Never a Smoker Recent Foreign Travel: No Contact w/Someone Who Travel: No Recent Infectious Disease Expo: No Recent Hopitalizations: No Immunizations Up To Date Tetanus Booster (TDap): Unknown Seasonal Allergies Seasonal Allergies: No Surgeries HX Surgeries: Yes (kidney stone removal) Surgeries: Gallbladder, Orthopedic, Tubal Ligation Respiratory Hx Respiratory Disorders: No Cardiovascular Hx Cardiac Disorders: No Cardiac Disorders: Heart Attack Neurological Hx Neurological Disorders: Yes Neurological Disorders: Headaches /Migraines, Seizure Disorder 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 System Hx 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 Disorders: Yes (ovarian tumor) Female 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 Disorders: 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 Genitourinary Hx Genitourinary Disorders: Yes Genitourinary Disorders: Kidney Stones Gastrointestinal Hx Gastrointestinal Disorders: No Musculoskeletal Hx Musculoskeletal Disorders: No Endocrine Hx Endocrine Disorders: No HEENT HX ENT Disorders: No Cancer Hx Cancer: No (current ovarian tumor) Psychosocial Hx Psychiatric Problems: Yes Behavioral Health Disorders: Anxiety Integumentary HX Skin/Integumentary Disorder: No Blood Transfusions Hx Blood Disorders: No Adverse Reaction to a Blood Tr: No Reviewed Nursing Assessment Reviewed/Agree w Nursing PMH: Yes Family Medical History Significant Family History: No Pertinent Family Hx Physical Exam Vital Signs Capillary Refill : Less Than 3 Seconds General Appearance: WD/WN, no apparent distress HEENT: PERRL/EOMI, pharynx normal Neck: supple, normal inspection Cardiovascular: normal peripheral pulses, regular rate, rhythm, no edema, no murmur Respiratory: lungs clear, normal breath sounds, no respiratory distress Gastrointestinal: normal bowel sounds, soft, no organomegaly, No distended, guarding (suprapubic), No rebound, tenderness (suprapubic), No mass Back: normal inspection, no CVA tenderness Extremities: no pedal edema, normal capillary refill Neurologic/Psychiatric: alert, oriented x 3, other (tearful, agitated) Skin: normal color, warm/dry Progress/Results/Core Measures Results/Orders Lab Results My Orders Medications Given in ED Vital Signs/I&O Blood Pressure Mean: 93 Diagnostic Imaging Diagonstic Imaging: Ultrasound Plain Films/CT/US/NM/MRI: pelvis Comments FINDINGS: The uterus is anteverted and measures 12.3 cm in length x 5.6 cm transversely x 5.8 cm in AP dimension. There is myometrial mass seen posteriorly near the fundus that measures 4.5 x 4.1 x 3.9 cm. Corresponding abnormality was identified on prior exam and measured approximately 4.3 x 4.2 x 4.6 cm at that time. Endometrial stripe measures 1 cm in thickness. Included portions of the cervix show multiple nabothian cysts. No adnexal masses or free fluid are seen. Ovaries cannot be well visualized on either side secondary to obscuration by adjacent bowel. IMPRESSION: Uterine mass; likely fibroid. Otherwise, unremarkable pelvic sonogram. Dictated by: Dictated on workstation # [id number] Reviewed: Reviewed by Me (radiology report reviewed by me) Departure Communication Progress Notes Patient seen and evaluated. Patient is agitated throughout the exam. I've explained to the patient and spouse that all of the emergency department nurses are in with another very ill patient and staff will bring her pain medication as soon as someone is available. Patient voices understanding. 2330 Patient agitated. States the medicine didn't do anything for her pain. States she has had 2 seizures while here because "That's what happens when I am in pain." Patient states she can take morphine and oxycodone. Hydrocodone makes her nauseated. Patient states "I just want to go home!" Patient has an appointment with Dr. Frazier Sunday. All laboratory findings and diagnostic study findings were discussed with the patient. I discussed with the patient she is to continue with the appointment Sunday as previously scheduled and to return to the emergency department if symptoms worsen. All return precautions were discussed with the patient as described in the discharge instructions of this report. Patient voices understanding and agrees with the treatment plan. Patient case discussed with attending MD Luly. He agrees with the plan of care. Impression Impression: Primary Impression: Abdominal pain Qualified Codes: R10.30 - Lower abdominal pain, unspecified Additional Impression: Nausea Disposition: HOME, SELF-CARE Condition: Improved Departure-Patient Inst. Decision time for Depature: 22:42 Referrals: [facility] (PCP/Family) Primary Care Physician Patient Instructions: Acute Pelvic Pain (DC), Gas and Bloating, Uterine Fibroids (DC) Add. Discharge Instructions: All discharge instructions reviewed with patient and/or family. Voiced understanding. Medications as instructed. Tylenol Extra Strength over-the- counter as directed for pain. Ibuprofen 800 mg by mouth every 8 hours as needed for pain. Drink plenty of fluids. Follow-up with Dr. Frazier as previously scheduled. Return to the emergency department for worsened pain, fever, vomiting, abdominal swelling, or any other concerns. Chewable Gas-X over -the-counter as directed. GARY NEVES Sep 15, 2016 19:51
[2016-09-15 20:06] LABS: BILIRUBIN,URINE NEGATIVE (NEGATIVE); KETONES,URINE NEGATIVE (NEGATIVE); LEUKOCYTE ESTERASE ,URINE 1+ (NEGATIVE); NITRITE,URINE NEGATIVE (NEGATIVE); PH,URINE 7 (5-9); PROTEIN,URINE 1+ (NEGATIVE); UROBILINOGEN,URINE NORMAL (NORMAL)
--- NOTE | 2016-09-15 20:41 | Diagnostic Imaging Report ---
INDICATION: Pelvic pain. COMPARISON: 08/25/2016. TECHNIQUE: Transpelvic and transvaginal sonogram was performed. FINDINGS: The uterus is anteverted and measures 12.3 cm in length x 5.6 cm transversely x 5.8 cm in AP dimension. There is myometrial mass seen posteriorly near the fundus that measures 4.5 x 4.1 x 3.9 cm. Corresponding abnormality was identified on prior exam and measured approximately 4.3 x 4.2 x 4.6 cm at that time. Endometrial stripe measures 1 cm in thickness. Included portions of the cervix show multiple nabothian cysts. No adnexal masses or free fluid are seen. Ovaries cannot be well visualized on either side secondary to obscuration by adjacent bowel. IMPRESSION: Uterine mass; likely fibroid. Otherwise, unremarkable pelvic sonogram. Dictated by: Dictated on workstation # [id number]
[2016-09-15] MEDS ORDERED: KETOROLAC 60 MG/2 ML VIAL IM STA (20:57)
[2016-09-15] MEDS ORDERED: ONDANSETRON 4 MG (ZOFRAN) ORAL DISSOLVE TAB SL STA (20:57)
[2016-09-15] MEDS ORDERED: PROMETHAZINE 25 MG (PHENERGAN) TAB PO ONE (23:00)
[2016-09-15] MEDS ORDERED: morphine INJ 10 MG/ML 1ML (SYR OR VIAL) IM STA (23:36)
[2016-09-15] MEDS ORDERED: METO5TAB2 PO (23:42)
[2016-09-16] MEDS ORDERED: OXYC-197 PO (00:12)
[2016-09-16 00:48] VITALS: BP 115/70
== END 2016-09-16 00:48 | disposition home or self-care (01) ==
LOC: EDUNIT# 18:12 → ER 18:14
DX: R10.2 Pelvic and perineal pain (principal); D25.9 Leiomyoma of uterus, unspecified
CPT/HCPCS: 76830; 76856; 81000; 84703; 96372; 99282

== ENCOUNTER 2016-09-29 09:13 | Outpatient (CLI) | payer OTHER ==
[~2016-09-29] VITALS: Ht 157.5 cm; Wt 103.0 kg
[~2016-09-29 09:13] MED LIST changes: +METO5TAB2 PO
[2016-09-29 09:20] VITALS: BP 120/86
[2016-09-29] MEDS ORDERED: ZOLP5TAB PO (09:25)
[2016-09-29] MEDS ORDERED: DICY10CA59 PO (09:25)
[2016-10-05] MEDS ORDERED: SIME80TA16 PO (12:44)
[2016-10-05] MEDS ORDERED: DOCU100C37 PO (12:44)
[2016-10-05] MEDS ORDERED: IBUP-1773 PO (12:44)
[2016-10-05] MEDS ORDERED: OXYC-464 PO (12:44)
== END 2016-09-29 09:35 | disposition home or self-care (01) ==
LOC: PREOP 09:13
PROVIDERS: ATTEND Obstetrics & Gynecology
DX: Z01.818 Encounter for other preprocedural examination (principal); Z11.2 Encounter for screening for other bacterial diseases; D25.9 Leiomyoma of uterus, unspecified; R10.2 Pelvic and perineal pain
CPT/HCPCS: 87081

== ENCOUNTER 2016-09-30 19:40 | Emergency (ER) | payer OTHER ==
[~2016-09-30] VITALS: Ht 157.5 cm; Wt 101.2 kg
[~2016-09-30 19:40] MED LIST changes: +DICY10CA59 PO; +ZOLP5TAB PO
--- NOTE | 2016-09-30 20:23 | ED Abdominal Pain ---
General Chief Complaint: Abdominal/GI Problems Stated Complaint: LOWER ABD PAIN Source of Information: Patient Exam Limitations: No Limitations History of Present Illness Time Seen By Provider: 20:22 Initial Comments To ER with suprapubic abdominal pain that became much worse than usual about 5 hours ago when she went to get up off the couch to walk to the kitchen. She's had minor amount of vaginal bleeding. She has a known uterine fibroid which she states his tennis ball in size and she is scheduled to have this surgically excised by Dr. FRAZIER this , 10/05/16. She states she was advised to come to the emergency room if her pain became too intense. No lightheadedness, syncope or heavy vaginal bleeding. No fevers or chills. No dysuria. Timing/Duration: 4-6 Hours Severity/Quality: Moderate Location: Suprapubic Radiation: No Radiation Activities at Onset: None Allergies and Home Medications Allergies Coded Allergies: Penicillins (Verified Allergy, Unknown, 04/17/16) acetaminophen (Verified Allergy, Unknown, 04/17/16) hydrocodone (Verified Allergy, Unknown, 04/17/16) omeprazole (Verified Allergy, Unknown, 04/17/16) ondansetron (Verified Allergy, Unknown, 04/17/16) Home Medications Dicyclomine HCl 10 Mg Capsule 10 MG PO Q4H (Reported) Zolpidem Tartrate 5 Mg Tablet 5 MG PO HS (Reported) Review of Systems Constitutional: see HPI EENTM: No Symptoms Reported Respiratory: No Symptoms Reported Cardiovascular: No Symptoms Reported Gastrointestinal: See HPI Abdominal PainDenies Constipated, Denies Diarrhea, Denies Nausea Genitourinary: No Symptoms Reported Musculoskeletal: no symptoms reported Skin: no symptoms reported Psychiatric/Neurological: No Symptoms Reported Past Vailyoq-Rhgzcs-Wybkjv Hx Patient Social History Recent Foreign Travel: No Contact w/Someone Who Travel: No Recent Hopitalizations: No Immunizations Up To Date Tetanus Booster (TDap): Unknown Seasonal Allergies Seasonal Allergies: Yes Surgeries HX Surgeries: Yes (kidney stone removal, L knee scope) Surgeries: Gallbladder, Orthopedic, Tubal Ligation Respiratory Hx Respiratory Disorders: No Cardiovascular Hx Cardiac Disorders: No (had a panic attack during a divorce & she had chest pain, EKG normal at [place]) Neurological Hx Neurological Disorders: Yes (pain related seizure- states she gets shaking and blacks out, ) Neurological Disorders: Headaches /Migraines, Seizure Disorder 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 System Hx 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 Disorders: Yes (ovarian tumor) Female 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 Genitourinary Hx Genitourinary Disorders: Yes Genitourinary Disorders: Kidney Stones Gastrointestinal Hx Gastrointestinal Disorders: Yes (celiac disease) Gastrointestinal Disorders: Chronic Diarrhea Musculoskeletal Hx Musculoskeletal Disorders: Yes Musculoskeletal Disorders: Chronic Back Pain Endocrine Hx Endocrine Disorders: No HEENT HX ENT Disorders: No Cancer Hx Cancer: No (current ovarian tumor) Psychosocial Hx Psychiatric Problems: Yes Behavioral Health Disorders: Anxiety Integumentary HX Skin/Integumentary Disorder: No Blood Transfusions Hx Blood Disorders: No Adverse Reaction to a Blood Tr: No Family Medical History Significant Family History: No Pertinent Family Hx Family Medial History: Alcoholism 19 MOTHER Hypertension 19 FATHER Psychosocial problem 19 MOTHER G8 BROTHER Physical Exam Vital Signs VS - Last 72 Hours, by Label 09/30/16 20:11 Temp 97.4 Pulse 93 Resp 20 B/P 123/85 Pulse Ox 99 O2 Delivery Room Air Capillary Refill : General Appearance: WD/WN no apparent distress HEENT: PERRL/EOMI normal ENT inspection Neck: non-tender full range of motion Respiratory: no respiratory distress no accessory muscle use Cardiovascular: regular rate, rhythm Gastrointestinal: normal bowel sounds soft tenderness Extremities: normal range of motion non-tender Neurologic/Psychiatric: alert normal mood/affect oriented x 3 Skin: normal color warm/dry Progress/Results/Core Measures Results/Orders Lab Results Laboratory Tests Test 09/30/16 20:20 09/30/16 20:27 Range/Units Urine Bacteria NONE /HPF Urine Bilirubin NEGATIVE NEGATIVE Urine Casts NONE /LPF Urine Clarity CLEAR Urine Color YELLOW Urine Crystals NONE /LPF Urine Culture Indicated NO Urine Glucose (UA) NEGATIVE NEGATIVE Urine Ketones NEGATIVE NEGATIVE Urine Leukocyte Esterase 1+ H NEGATIVE Urine Mucus SMALL H /LPF Urine Nitrite NEGATIVE NEGATIVE Urine Protein 1+ H NEGATIVE Urine RBC 25-50 H /HPF Urine RBC (Auto) 5+ H NEGATIVE Urine Specific [place] 1.025 H 1.016-1.022 Urine Squamous Epithelial Cells 2-5 /HPF Urine Urobilinogen NORMAL NORMAL MG/DL Urine WBC 2-5 /HPF Urine pH 6 5-9 Basophils # (Auto) 0.0 0.0-0.1 10^3/uL Basophils (%) (Auto) 1 0-10 % Eosinophils # (Auto) 0.2 0.0-0.3 10^3/uL Eosinophils (%) (Auto) 3 0-10 % Hematocrit 38 35-52 % Hemoglobin 12.8 11.5-16.0 G/DL Lymphocytes # (Auto) 2.5 1.0-4.0 X 10^3 Lymphocytes (%) (Auto) 38 12-44 % Mean Corpuscular Hemoglobin 29 25-34 PG Mean Corpuscular Hemoglobin Concent 34 32-36 G/DL Mean Corpuscular Volume 87 80-99 FL Mean Platelet Volume 8.8 7.4-10.4 FL Monocytes # (Auto) 0.5 0.0-1.0 X 10^3 Monocytes (%) (Auto) 7 0-12 % Neutrophils # (Auto) 3.3 1.8-7.8 X 10^3 Neutrophils (%) (Auto) 51 42-75 % Platelet Count 372 130-400 10^3/uL Red Blood Count 4.38 4.35-5.85 10^6/uL Red Cell Distribution Width 13.8 10.0-14.5 % White Blood Count 6.5 4.3-11.0 10^3/uL My Orders Orders-JENNIFER KINNEY APRN Ketorolac Injection (Toradol Injection) (09/30/16 20:30) Saline Lock/Iv-Start (09/30/16 20:20) Cbc With Automated Diff (09/30/16 20:20) Ua Culture If Indicated (09/30/16 20:20) Fentanyl Injection (Sublimaze Injection (09/30/16 20:30) Medications Given in ED Current Medications Medications Dose Ordered Sig/Bienvenido Route Start Time Stop Time Status Last Admin Dose Admin Fentanyl Citrate 50 mcg ONCE ONCE IVP 09/30/16 20:30 09/30/16 20:31 DC 09/30/16 20:32 50 MCG Ketorolac Tromethamine 30 mg ONCE ONCE IVP 09/30/16 20:30 09/30/16 20:31 DC 09/30/16 20:32 30 MG Vital Signs/I&O Vital Sign - Last 12Hours 09/30/16 20:11 Temp 97.4 Pulse 93 Resp 20 B/P 123/85 Pulse Ox 99 O2 Delivery Room Air Departure Impression Impression: Primary Impression: Uterine pain Disposition: 01 HOME, SELF-CARE Condition: Stable Departure-Patient Inst. Decision time for Depature: 21:00 Referrals: ZAN FRAZIER DO (PCP/Family) Primary Care Physician Patient Instructions: UTERINE FIBROIDS Add. Discharge Instructions: 1. Return to ER for any worsening pain or other concerns 2. Follow-up with Dr. FRAZIER as scheduled All discharge instructions reviewed with patient and/or family. Voiced understanding. Copy Copies To 1: ZAN FRAZIER PETER J APRN Sep 30, 2016 20:23
[2016-09-30 20:25] LABS: BILIRUBIN,URINE NEGATIVE (NEGATIVE); KETONES,URINE NEGATIVE (NEGATIVE); LEUKOCYTE ESTERASE ,URINE 1+ (NEGATIVE); NITRITE,URINE NEGATIVE (NEGATIVE); PH,URINE 6 (5-9); PROTEIN,URINE 1+ (NEGATIVE); UROBILINOGEN,URINE NORMAL (NORMAL)
[2016-09-30] MEDS ORDERED: KETOROLAC 30 MG/ML VIAL IVP ONE (20:30)
[2016-09-30] MEDS ORDERED: fentaNYL INJECTION 100 MCG/2 ML AMP IVP ONE (20:30)
[2016-09-30 20:33] LABS: BASOPHILS % (AUTO) 1 % (0-10); EOSINOPHILS # (AUTO) 0.2 10^3/uL (0.0-0.3); EOSINOPHILS % (AUTO) 3 % (0-10); LYMPHOCYTES # (AUTO) 2.5 X 10^3 (1.0-4.0); LYMPHOCYTES % (AUTO) 38 % (12-44); MEAN CORPUSCULAR HEMOGLOBIN 29 PG (25-34); MEAN CORPUSCULAR HGB CONC 34 G/DL (32-36); MEAN CORPUSCULAR VOLUME 87 FL (80-99); MEAN PLATELET VOLUME 8.8 FL (7.4-10.4); MONOCYTES # (AUTO) 0.5 X 10^3 (0.0-1.0); MONOCYTES % (AUTO) 7 % (0-12); NEUTROPHILS # (AUTO) 3.3 X 10^3 (1.8-7.8); NEUTROPHILS % (AUTO) 51 % (42-75); PLATELET COUNT 372 10^3/uL (130-400); RED BLOOD COUNT 4.38 10^6/uL (4.35-5.85); RED CELL DISTRIBUTION WIDTH 13.8 % (10.0-14.5); WHITE BLOOD COUNT 6.5 10^3/uL (4.3-11.0)
[2016-09-30] MEDS ORDERED: morphine INJ 10 MG/ML 1ML (SYR OR VIAL) IVP ONE (21:15)
[2016-09-30 21:39] VITALS: BP 114/75
== END 2016-09-30 21:39 | disposition home or self-care (01) ==
LOC: EDUNIT# 19:40 → ER 19:42
DX: N94.89 Other specified conditions associated with female genital organs and menstrual cycle (principal); D25.9 Leiomyoma of uterus, unspecified
CPT/HCPCS: 36415; 80306; 81000; 85025; 96374; 96375

== ENCOUNTER 2016-10-05 09:40 | Day surgery (SDC) | payer OTHER ==
[2016-10-05] VITALS (8 sets, daily range): BP systolic 105–129; BP diastolic 69–95
[~2016-10-05] VITALS: Ht 157.5 cm; Wt 101.2 kg
[2016-10-05] MEDS: LACTATED RINGERS 1,000 ML IV PRN ×2 (09:50→12:00)
[2016-10-05] MEDS ORDERED: metroNIDAZOLE 500 MG/100 ML IVPB (PRE-MIX) IV ONE (10:00)
[2016-10-05] MEDS ORDERED: ceFAZolin 2 GM/NS 50 ML IV ONE (10:00)
[2016-10-05] MEDS ORDERED: proPOfol 200 MG/20 ML (DIPRIVAN) VIAL IV ONE (10:52)
[2016-10-05] MEDS ORDERED: MIDAZOLAM 2 MG/2 ML (VERSED) VIAL ONE (10:52)
[2016-10-05] MEDS ORDERED: ROCURONIUM 50 MG/5 ML (ZEMURON) VIAL IV ONE (10:52)
[2016-10-05] MEDS ORDERED: fentaNYL INJECTION 250 MCG/5 ML AMP ONE (10:52)
[2016-10-05] MEDS ORDERED: BUPIVACAINE 0.25% 30 ML (SENSORCAINE) VIAL ONE (10:55)
--- NOTE | 2016-10-05 11:00 | Progress Note-Pre Operative ---
Pre-Operative Progress Note H&P Reviewed The H&P was reviewed, patient examined and no changes noted. Date H&P Reviewed: Oct 05, 2016 Time H&P Reviewed: 10:45 Pre-Operative Diagnosis: Fibroid uterus, Pelvic pain ZAN FRAZIER DO Oct 05, 2016 11:00 am
[2016-10-05] MEDS ORDERED: LACTATED RINGERS 2,000 ML IV ONE (11:48)
[2016-10-05] MEDS ORDERED: SEVOFLURANE (ULTANE) 15 ML INHAL SOLN ONE ×5 (11:48→12:18)
[2016-10-05] MEDS ORDERED: DEXAMETHASONE PF 10 MG/ML (DECADRON) VIAL ONE (11:48)
[2016-10-05] MEDS ORDERED: KETOROLAC 30 MG/ML VIAL ONE ×2 (11:48→12:37)
[2016-10-05] MEDS ORDERED: NEOSTIGMINE (BLOXIVERZ ) 1 MG/1ML 10 ML VIAL ONE (12:32)
[2016-10-05] MEDS ORDERED: GLYCOPYRROLATE 0.2 MG/ML (ROBINUL) 2 ML VIAL ONE (12:32)
[2016-10-05] MEDS ORDERED: morphine INJ 10 MG/ML 1ML (SYR OR VIAL) ONE (12:37)
[2016-10-05] MEDS ORDERED: PROMETHAZINE INJ 25 MG/ML (PHENERGAN) AMP ONE (12:37)
[2016-10-05] MEDS ORDERED: HYDROmorphone (DILAUDID) 2 MG/ML VIAL ONE (12:37)
--- NOTE | 2016-10-05 12:42 | Discharge Inst-Women's Service ---
Discharge Inst-Women's Serv Depart Medication/Instructions New, Converted or Re-Newed RX: RX on Chart Consults/Follow Up Additional Follow Up: Yes Orders/Referrals Dr. Dykes in 7-10 days and in 8 weeks Activity Activity: Activity as Tolerated Driving Instructions: No Driving for 1 Week NO SMOKING: NO SMOKING Nothing Inside Vagina: No Douching, No Fed[place], No Tampons Diet Discharge Diet: No Restrictions Symptoms to Report to : Bleeding Excessive, Pain Increased, Fever Over 101 Degrees F, Vaginal Bleeding Increase, Questions/Concerns For Any Problems or Questions: Contact Your Physician Skin/Wound Care Infection Signs and Symptoms: Increased Redness, Foul Odor of Wound, Increased Drainage, Skin Itchy or Has a Rash, Increased Swelling, Temperature Above 101 F Operative Area Clean and Dry: Keep Incision Clean/Dry Stitches/Blanca/Dermabond: Dermabond, Care of Stitches Bathing Instructions: ZAN Rodney DO Oct 05, 2016 12:42
[2016-10-05] MEDS ORDERED: IBUP-1773 PO (12:44)
[2016-10-05] MEDS ORDERED: SIME80TA16 PO (12:44)
[2016-10-05] MEDS ORDERED: OXYC-464 PO (12:44)
[2016-10-05] MEDS ORDERED: DOCU100C37 PO (12:44)
[2016-10-05] MEDS ORDERED: ZOLPIDEM 5 MG (AMBIEN) TAB PO PRN (12:45)
[2016-10-05] MEDS ORDERED: SIMETHICONE 80 MG (MYLICON) CHEW PO PRN (12:45)
[2016-10-05] MEDS ORDERED: DOCUSATE SODIUM 100 MG (COLACE) CAP PO PRN (12:45)
[2016-10-05] MEDS ORDERED: ANTACID SUSP 30 ML UDC (MYLANTA) PO PRN (12:45)
[2016-10-05] MEDS ORDERED: CHLORASEPTIC LOZENGE MM PRN (12:45)
[2016-10-05] MEDS: HYDROmorphone (DILAUDID) 2 MG/ML VIAL IV PRN ×3 (12:49→13:10)
[2016-10-05] MEDS: morphine INJ 10 MG/ML 1ML (SYR OR VIAL) IV PRN ×2 (12:54→13:07)
[2016-10-05] MEDS: PROMETHAZINE INJ 25 MG/ML (PHENERGAN) AMP IV PRN ×2 (12:57→13:12)
[2016-10-05] MEDS ORDERED: fentaNYL INJECTION 100 MCG/2 ML AMP IV PRN (13:00)
[2016-10-05] MEDS: KETOROLAC 30 MG/ML VIAL IV PRN ×2 (13:23→19:01)
[2016-10-05] MEDS: LACTATED RINGERS 1,000 ML IV SCH ×2 (13:28→22:30)
[2016-10-05] MEDS ORDERED: HYDROmorphone (DILAUDID) 2 MG/ML VIAL IVP ONE (16:15)
[2016-10-05] MEDS: CATHETER FLUSH 10 ML SYR IV SCH ×2 (20:01→20:02)
[2016-10-05] MEDS: PROMETHAZINE INJ 25 MG/ML (PHENERGAN) AMP IVP PRN (20:01)
[2016-10-05] MEDS: oxyCODONE/APAP 7.5-325 MG (PERCOCET 7.5) TABLET PO PRN (20:08)
[2016-10-06] MEDS: oxyCODONE/APAP 7.5-325 MG (PERCOCET 7.5) TABLET PO PRN ×4 (00:07→14:01)
[2016-10-06] MEDS: KETOROLAC 30 MG/ML VIAL IV PRN ×2 (00:07→06:16)
[2016-10-06 00:10] VITALS: BP 107/64
[2016-10-06] MEDS: PROMETHAZINE INJ 25 MG/ML (PHENERGAN) AMP IVP PRN ×3 (01:28→14:02)
[2016-10-06 03:20] VITALS: BP 98/65
[2016-10-06] MEDS ORDERED: IBUPROFEN 600 MG (MOTRIN) TAB PO PRN (05:30)
[2016-10-06 07:42] VITALS: BP 122/75
--- NOTE | 2016-10-06 09:05 | OPERATIVE REPORT ---
PROCEDURE PHYSICIAN: JAXSON FRAZIER DATE OF PROCEDURE: 10/05/2016 PREOPERATIVE DIAGNOSIS: 1. 36-year-old female with fibroid uterus. 2. Severe pelvic pain on chronic pelvic pain. POSTOPERATIVE DIAGNOSES: 1. 36-year-old female with fibroid uterus. 2. Severe pelvic pain on chronic pelvic pain. PROCEDURE: Robotic assisted total laparoscopic hysterectomy with bilateral salpingectomy with total weight of uterus greater than 250 grams. SURGEON: Dr. Jaxson Frazier. MANAGER CLINICAL APPLICATIONS: Kellie Brasher APRN, who was necessary for retraction of vital structures. ANESTHESIA: General endotracheal. ESTIMATED BLOOD LOSS: Minimal. URINE OUTPUT: 100 mL clear at the end of the procedure. FLUIDS: 1300 mL of lactated ringer solution. FINDINGS: Findings is a bulky enlarged uterus with a large fundal subserosal fibroid approximately 4 x 5 cm, grossly normal appearing fallopian tubes with indiction of previous tubal ligation. Grossly normal appearing bilateral ovaries. SPECIMEN SENT: Uterus, bilateral fallopian tubes. INDICATIONS FOR THE PROCEDURE: This 36-year-old female was a consultation in my office for ongoing pelvic pain that had been getting progressively worse over the past 2 to 3 months sending her to the emergency department and causing her to have "seizures." The patient reports that when she is in significant amounts of pain she has the seizures. She has gone to the emergency department twice in the past week with this pain. However, I had previously worked this patient up and found that she does have substantially large fibroid that could be a causing discomfort. We discussed the patient the possibility of the fibroid not being underlying cause for her pain but due to her ongoing pain and long history of bleeding issues with heavy irregular periods, I discussed with the patient proceeding with hysterectomy, versus a uterine artery embolization which I feel would not work due to the position of this fibroid as well as Lupron therapy which would take quite a bit of time before we got a relief in her pain. The patient was very open to proceed with hysterectomy as she did not plan for any future childbearing. She very had a tubal ligation. Risks of this procedure were discussed with the patient in detail including risk of bleeding, infection, damaging any surrounding structures including but not limited to the bowel, bladder, ureter, kidneys, risk for enterotomy, risk for cystotomy, risk for fistula formation and subsequent procedures were all discussed with the patient in detail including and hematoma risk, stroke, heart attack, risk from anesthesia, risk for need for blood transfusion, and even , were all discussed with the patient. After all of her questions were answered, consent was obtained in the preoperative area with her mother and daughter present for the discussion and she was taken back to the operating room at that point. OPERATIVE REPORT IN DETAIL: Once in the operating room, general anesthesia was found to be adequate. She was placed in dorsal lithotomy position, and prepped and draped in normal sterile fashion by nurses in attendance and circulating. I first start the procedure by placing a Esteban catheter using sterile technique. I placed a weighted speculum into the patient's vagina. A right angle retractor was used to visualize the cervix. It was grasped at the 12 o'clock position. Using a long Allis clamp an 0 Vicryl suture was placed at the anterior lip of the cervix and used as my retraction point. I then sound the uterine cavity depth which was found to be 8 cm. I select an 8 cm WANDA uterine manipulator tip and a 4 cm colpotomy ring and advance the tip into the uterus deploying the balloon and advancing the colpotomy ring around the vaginal fornix. Once this is in place, excellent bimanual manipulation is demonstrated on bimanual examination at that point. I then remove all the other instruments from the patient's vagina and take my attention to the abdomen where supraumbilically I infiltrate this area using 0.25% Marcaine, make an 8 mm incision using a knife and direct a Veress needle through this incision until intraperitoneal placement is confirmed using a saline drop test. I proceed with insufflation using CO2 gas. Opening pressure of 4 mmHg is noted. I proceed to maximum pressure of 15 mmHg at which point I remove the Veress needle and introduced an 8 mm blunt da Zay camera trocar. Once this is in place, I had the patient placed in steep Trendelenburg and I am able visualize all the pelvic anatomy as needed to proceed with the procedure. I then placed 2 lateral trocars as well as 8 mm trocars. The skin is infiltrated using 0.25% Marcaine. 8 mm incisions are made and the trocars are directed under visualization of the laparoscope. Once these are in place, I am able to bring the da Zay robot and dock it in the appropriate fashion, placing the bipolar da Zay vessel sealer in the left hand and monopolar urmial in the right hand. I perform the following dissection bilaterally: I grasp the utero-ovarian ligament, bipolar cauterize it and transect it using the vessel sealer. I grasp the round ligament, bipolar cauterize this and transect it using the vessel sealer. There is a window in the mesosalpinx created by her previous tubal ligation, I amputate the tubes down the mesosalpinx and place these in the posterior cul-de-sac to place in the vagina later to remove. I then grasp the entire broad ligament, bipolar cauterize this and transect it using the vessel sealer down to the level of the lower uterine segment. I take the anterior leaflet around to the anterior vaginal fornix. The posterior leaflet is taken around to the posterior vaginal fornix which allows me to skeletonize the uterine vessels laterally by bipolar cauterize and transecting using the vessel sealer. I then perform a colpotomy at 12 o'clock position using monopolar urmila and take it circumferentially around the vaginal fornix, amputating the cervix away from the vaginal fornix which allows my environmental emergencies assistant to remove the cervix, uterus and bilateral fallopian tubes through the vaginal opening. The vaginal cuff is then reapproximated in the lateral vaginal apices. I use 2-0 Vicryl suture in a [id number] fashion suspending them to the uterosacral ligaments and the middle portion of the vaginal cuff. I close this using 2-0 V-Loc in a running fashion. There is no active bleeding noted from any my dissection planes. I undock the da Zay robot and proceed with the remainder of the case laparoscopically. I copiously irrigate the pelvis using normal saline. There is no active bleeding noted from any my dissection planes. I place FloSeal hemostatic agent over all my planes of dissection to ensure postoperative hemostasis. I had the patient taken out of steep Trendelenburg and remove the lateral trocars under direct visualization of the laparoscope. The infraumbilical trocar is left in place to release insufflation. I introduced 10 mL of 0.25% Marcaine in the peritoneal cavity for postoperative pain management. I then remove this trocar as well and close the skin incision using 4-0 Monocryl in an interrupted subcuticular stitches. Dermabond is applied to the incision. Band-Aids are placed over these. Esteban catheter was left in place. The patient tolerated the procedure well and was taken to recovery area in stable condition. Lap and sponge counts correct at the end of the procedure. Instrument counts correct as well. 2 grams of Ancef 500 mg Flagyl given preoperatively for infection prophylaxis. Job ID: [id number] Dictated Date: 10/05/2016 13:20:11 Automobile Drivers Date: 10/05/2016 13:42:41 / edilson
[2016-10-06] MEDS ORDERED: BETHANECHOL 10 MG (URECHOLINE) TAB PO NR (10:45)
[2016-10-06] MEDS ORDERED: NS IV 1000 ML 1,000 ML ONE (12:31)
[2016-10-06] MEDS ORDERED: FLU TRIvalent (5 YOA+) 2016-17 (AFLURIA) 0.5 ML IM ONE (12:45)
[2016-10-06 14:00] VITALS: BP 116/78
[2016-10-06] MEDS ORDERED: FUROSEMIDE 40 MG/4 ML INJ (LASIX) IVP ONE (14:15)
[2016-10-06] MEDS ORDERED: NS IV 1000 ML 1,000 ML IV SCH (14:30)
--- NOTE | 2016-10-06 14:34 | Anesthesia-General Post-Op ---
General Patient Condition Mental Status/LOC: Same as Preop Cardiovascular: Satisfactory Nausea/Vomiting: Absent Respiratory: Satisfactory Pain: Controlled Complications: Absent Post Op Complications Complications None Follow Up Care/Instructions Patient Instructions None needed. Anesthesia/Patient Condition Patient Condition Patient is doing well, no complaints, stable vital signs, no apparent adverse anesthesia problems. No complications reported per nursing. D/C home per [facility] Criteria: GIOVANA Santos DO Oct 06, 2016 14:34
[2016-10-06] MEDS ORDERED: oxyCODONE/APAP 7.5-325 MG (PERCOCET 7.5) TABLET PO PRN (16:45)
--- OUTSIDE RECORDS SUMMARY | 2016-10-08 08:36 | XMS REPORT ---
Author Author ELZBIETA RAMOS Organization [employer] Address Unknown Phone Unavailable Care Team Providers Care Employee Communications Coordinator Name Role Phone ELZBIETA RAMOS CP Unavailable Allergies No Known Allergies Problems No Known Problems Medications No Known Medications Results No Known Results Summary Purpose [employer] Submission
--- OUTSIDE RECORDS SUMMARY | 2016-10-08 08:36 | XMS REPORT ---
Author Author JAMARCUS OSORIO Organization [employer] Address Unknown Phone Unavailable Care Team Providers Care Rn Training Name Role Phone JAMARCUS OSORIO CP Unavailable [...] Start Date End Date Status Dosage Ibuprofen [facility] [id number] 200 MG Orally every 6 hrs 1 tablet as needed Azithromycin [facility] [address]-19 250 MG Orally Once a day May 22, 2016 May 27, 2016 2 tablets on the first day, then 1 tablet daily for 4 days Procedures Procedure Coding System Code Date Office Visit, Est Pt., Level 3 CPT-4 88390 May 22, 2016 INFLUENZA ASSAY W/OPTIC CPT-4 87619 May 22, 2016 Vital Signs Date/Time: May [...] negative [id number] ----Control + [id number] ----Lot # [id number] Summary Purpose [employer] Submission
== END 2016-10-06 17:45 | disposition home or self-care (01) ==
LOC: DELPENDDIS → SDC 09:40 → WS 15:56 → SDC 10-06 17:45
PROVIDERS: ATTEND Obstetrics & Gynecology
DX: N80.0 Endometriosis of uterus (principal); D25.1 Intramural leiomyoma of uterus; N83.8 Other noninflammatory disorders of ovary, fallopian tube and broad ligament; R10.2 Pelvic and perineal pain
CPT/HCPCS: 84703; 86850; 86900; 86901; 88307; 94760; 96361; 96375; 96376

== ENCOUNTER 2016-10-10 19:33 | Emergency (ER) | payer OTHER ==
[~2016-10-10] VITALS: Ht 157.5 cm; Wt 99.8 kg
[~2016-10-10 19:33] MED LIST changes: +DOCU100C37 PO; +IBUP-1773 PO; +OXYC-464 PO; +SIME80TA16 PO
[2016-10-10] MEDS ORDERED: fentaNYL INJECTION 100 MCG/2 ML AMP IVP STA (20:14)
[2016-10-10] MEDS ORDERED: IOHEXOL 350 MG/ML 100 ML (OMNIPAQUE 350) VIAL IV ONE (20:30)
[2016-10-10] MEDS ORDERED: NS 100 ML (IVPB) BAG IV ONE (20:30)
[2016-10-10 20:38] LABS: BASOPHILS % (AUTO) 1 % (0-10); EOSINOPHILS # (AUTO) 0.3 10^3/uL (0.0-0.3); EOSINOPHILS % (AUTO) 5 % (0-10); LYMPHOCYTES # (AUTO) 1.8 X 10^3 (1.0-4.0); LYMPHOCYTES % (AUTO) 29 % (12-44); MEAN CORPUSCULAR HEMOGLOBIN 29 PG (25-34); MEAN CORPUSCULAR HGB CONC 33 G/DL (32-36); MEAN CORPUSCULAR VOLUME 88 FL (80-99); MEAN PLATELET VOLUME 8.9 FL (7.4-10.4); MONOCYTES # (AUTO) 0.6 X 10^3 (0.0-1.0); MONOCYTES % (AUTO) 9 % (0-12); NEUTROPHILS # (AUTO) 3.7 X 10^3 (1.8-7.8); NEUTROPHILS % (AUTO) 57 % (42-75); PLATELET COUNT 292 10^3/uL (130-400); RED BLOOD COUNT 4.06 10^6/uL (4.35-5.85); RED CELL DISTRIBUTION WIDTH 13.5 % (10.0-14.5); WHITE BLOOD COUNT 6.4 10^3/uL (4.3-11.0)
--- NOTE | 2016-10-10 20:40 | ED GU-Female ---
General Chief Complaint: General Problems/Pain Stated Complaint: POST HYSTERECTOMY/VAGINAL PAIN/NAUSEA Nursing Triage Note: Patient had Robotic hysterectomy leaving tubes and ovaries last . When getting up to void at noon began severe pain in right groin/genital region. Pt's pain meds are not controlling pain: Percocet 7.5 mg at 1600 and Ibu 600 mg at 1730 Nursing Sepsis Screen: No Definite Risk Source: patient Exam Limitations: no limitations History of Present Illness Time seen by provider: 20:40 Initial Comments 36-year-old female patient presents to the emergency Department with reports of having a robotic hysterectomy last . States today when she stood up to go to the bathroom she noticed a sharp pain in the right groin. It's pain is worse with movement. Reports taking Percocet 7.5 mg at 1600 and ibuprofen 600 mg at 1730 with minimal improvement in symptoms. Spouse reports they contacted the surgeon's office and was told to come to the emergency department. Denies fevers, chills, diarrhea, shortness of air, chest pain, dysuria, frequency, hematuria. Denies vaginal bleeding or discharge. Patient does complain of nausea and vomiting today. Timing/Duration: this afternoon, constant Severity/Quality: cramping, sharp Location: groin (right groin) Radiation: suprapubic Activities at Onset: other (stood up from a sitting position) Prior Genitourinary Problems: none Modifying Factors: Worsens With Movement, Worsens With Palpation Allergies and Home Medications Allergies Coded Allergies: Penicillins (Verified Allergy, Unknown, 04/17/16) acetaminophen (Verified Allergy, Unknown, 04/17/16) hydrocodone (Verified Allergy, Unknown, 04/17/16) omeprazole (Verified Allergy, Unknown, 04/17/16) ondansetron (Verified Allergy, Unknown, 04/17/16) Home Medications Dicyclomine HCl 10 Mg Capsule, 10 MG PO Q4H, (Reported) Docusate Sodium 100 Mg Capsule, 100 MG PO BID PRN for CONSTIPATION, #40 Prescribed by: ZAN FRAZIER on 10/05/16 1244 Ibuprofen 600 Mg Tablet, 600 MG PO Q6H PRN for PAIN, #80 Prescribed by: ZAN FRAZIER on 10/05/16 1244 Oxycodone HCl/Acetaminophen 1 Each Tablet, 1 EACH PO Q4H PRN for MODERATE PAIN for 50 Days Prescribed by: ZAN FRAZIER on 10/05/16 1244 Polyethylene Glycol 3350 119 Gm Powder, 17 GM PO HS, #1 Ref 0 Prescribed by: GARY NEVES on 10/10/162204 Promethazine HCl 25 Mg Tablet, 25 MG PO Q6H PRN for NAUSEA/VOMITING, #10 Ref 0 Prescribed by: GARY NEVES on 10/10/162204 Simethicone 80 Mg Tab.chew, 40 MG PO TID PRN for INDIGESTION, #40 Prescribed by: ZAN FRAZIER on 10/05/16 1244 Zolpidem Tartrate 5 Mg Tablet, 5 MG PO HS, (Reported) Constitutional: No chills, No fever, No malaise Respiratory: No cough, No short of breath Cardiovascular: No chest pain, No palpitations, No syncope Gastrointestinal: see HPI, abdominal pain, No constipation, No diarrhea, nausea , vomiting Genitourinary: see HPI, denies burning, denies discharge, denies dysuria, denies frequency, denies flank pain, denies hematuria, pain Musculoskeletal: No back pain Skin: no symptoms reported Psychiatric/Neurological: No Symptoms Reported All Other Systemes Reviewed Negative Unless Noted: Yes (Negative excepted noted.) Past Epoaths-Czpjig-Herwmb Hx Patient Social History Alcohol Use: Denies Use Recreational Drug Use: No Smoking Status: Never a Smoker 2nd Hand Smoke Exposure: No Recent Foreign Travel: No Contact w/Someone Who Travel: No Recent Infectious Disease Expo: No Recent Hopitalizations: Yes (Robotic hyst last Th) Immunizations Up To Date Tetanus Booster (TDap): Unknown Seasonal Allergies Seasonal Allergies: Yes Surgeries HX Surgeries: Yes (kidney stone removal, L knee scope, Robotic vag hyst) Surgeries: Gallbladder, Hysterectomy, Orthopedic, Tubal Ligation Respiratory Hx Respiratory Disorders: No Cardiovascular Hx Cardiac Disorders: No (had a panic attack during a divorce & she had chest pain, EKG normal at [place]) Cardiac Disorders: Heart Attack Neurological Hx Neurological Disorders: Yes (pain related seizure- states she gets shaking and blacks out, ) Neurological Disorders: Headaches /Migraines, Seizure Disorder 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 System Hx 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 Disorders: Yes (ovarian tumor) Female 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 Disorders: Ovarian Cyst [employer] History: Tubal Ligation Genitourinary Hx Genitourinary Disorders: Yes Genitourinary Disorders: Kidney Stones Gastrointestinal Hx Gastrointestinal Disorders: Yes (celiac disease) Gastrointestinal Disorders: Chronic Diarrhea Musculoskeletal Hx Musculoskeletal Disorders: Yes Musculoskeletal Disorders: Chronic Back Pain Endocrine Hx Endocrine Disorders: No HEENT HX ENT Disorders: No Cancer Hx Cancer: 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 ovarian tumor) Psychosocial Hx Psychiatric Problems: Yes Behavioral Health Disorders: Anxiety Integumentary HX Skin/Integumentary Disorder: No Blood Transfusions Hx Blood Disorders: No Adverse Reaction to a Blood Tr: No Reviewed Nursing Assessment Reviewed/Agree w Nursing PMH: Yes Family Medical History Significant Family History: No Pertinent Family Hx Family Medial History: Alcoholism 19 MOTHER Hypertension 19 FATHER Psychosocial problem 19 MOTHER G8 BROTHER Physical Exam Vital Signs Vital Sign - Last 12Hours 10/10/16 19:45 Temp 99.5 Pulse 105 Resp 22 B/P (MAP) 138/99 Pulse Ox 95 O2 Delivery Room Air Capillary Refill : Less Than 3 Seconds General Appearance: WD/WN, moderate distress HEENT: PERRL/EOMI, pharynx normal Neck: supple, normal inspection Cardiovascular: normal peripheral pulses, regular rate, rhythm, no murmur Respiratory: lungs clear, normal breath sounds, no respiratory distress Gastrointestinal: normal bowel sounds, distended (mildly distended, but soft), guarding (right groin, RUQ, and RLQ), No rebound, tenderness (right groin, RUQ, and RLQ), other (incisions intact without evidence of erythema, warmth, or drainage.) Back: normal inspection Extremities: no pedal edema, normal capillary refill Neurologic/Psychiatric: alert, oriented x 3, other (patient is tearful) Skin: normal color, warm/dry, other (abdominal incisions intact without evidence of erythema, warmth, or drainage.) Progress/Results/Core Measures Results/Orders Lab Results Laboratory Tests Test 10/10/16 20:25 10/10/16 21:15 Range/Units White Blood Count 6.4 4.3-11.0 10^3/uL Red Blood Count 4.06 L 4.35-5.85 10^6/uL Hemoglobin 11.9 11.5-16.0 G/DL Hematocrit 36 35-52 % Mean Corpuscular Volume 88 80-99 FL Mean Corpuscular Hemoglobin 29 25-34 PG Mean Corpuscular Hemoglobin Concent 33 32-36 G/DL Red Cell Distribution Width 13.5 10.0-14.5 % Platelet Count 292 130-400 10^3/uL Mean Platelet Volume 8.9 7.4-10.4 FL Neutrophils (%) (Auto) 57 42-75 % Lymphocytes (%) (Auto) 29 12-44 % Monocytes (%) (Auto) 9 0-12 % Eosinophils (%) (Auto) 5 0-10 % Basophils (%) (Auto) 1 0-10 % Neutrophils # (Auto) 3.7 1.8-7.8 X 10^3 Lymphocytes # (Auto) 1.8 1.0-4.0 X 10^3 Monocytes # (Auto) 0.6 0.0-1.0 X 10^3 Eosinophils # (Auto) 0.3 0.0-0.3 10^3/uL Basophils # (Auto) 0.0 0.0-0.1 10^3/uL Sodium Level 138 135-145 MMOL/L Potassium Level 4.1 3.6-5.0 MMOL/L Chloride Level 102 98-107 MMOL/L Carbon Dioxide Level 27 21-32 MMOL/L Anion Gap 9 5-14 MMOL/L Blood Urea Nitrogen 9 7-18 MG/DL Creatinine 0.84 0.60-1.30 MG/DL Estimat Glomerular Filtration Rate > 60 BUN/Creatinine Ratio 11 Glucose Level 102 70-105 MG/DL Calcium Level 8.8 8.5-10.1 MG/DL Total Bilirubin 0.5 0.1-1.0 MG/DL Aspartate Amino Transf (AST/SGOT) 386 H 5-34 U/L Alanine Aminotransferase (ALT/SGPT) 259 H 0-55 U/L Alkaline Phosphatase 161 H 40-136 U/L Total Protein 6.4 6.4-8.2 G/DL Albumin 3.6 3.2-4.5 G/DL Urine Color YELLOW Urine Clarity CLEAR Urine pH 8 5-9 Urine Specific [place] 1.010 L 1.016-1.022 Urine Protein NEGATIVE NEGATIVE Urine Glucose (UA) NEGATIVE NEGATIVE Urine Ketones NEGATIVE NEGATIVE Urine Nitrite NEGATIVE NEGATIVE Urine Bilirubin NEGATIVE NEGATIVE Urine Urobilinogen NORMAL NORMAL MG/DL Urine Leukocyte Esterase NEGATIVE NEGATIVE Urine RBC (Auto) NEGATIVE NEGATIVE Urine RBC NONE /HPF Urine WBC RARE /HPF Urine Squamous Epithelial Cells 5-10 /HPF Urine Crystals NONE /LPF Urine Bacteria NEGATIVE /HPF Urine Casts NONE /LPF Urine Mucus NEGATIVE /LPF Urine Culture Indicated NO My Orders Orders - GARY NEVES Cbc With Automated Diff (10/10/16 20:14) Comprehensive Metabolic Panel (10/10/16 20:14) Ua Culture If Indicated (10/10/16 20:14) Ct Abdomen/Pelvis W (10/10/16 20:14) Saline Lock/Iv-Start (10/10/16 20:14) Fentanyl Injection (Sublimaze Injection (10/10/16 20:14) Iohexol Injection (Omnipaque 350 Mg/Ml 1 (10/10/16 20:30) Ns (Ivpb) (Sodium Chloride 0.9% Ivpb Bag (10/10/16 20:30) Ns Iv 1000 Ml (Sodium Chloride 0.9%) (10/10/16 21:09) Promethazine Injection (Phenergan Injec (10/10/16 21:15) Morphine Injection (Morphine Injection (10/10/16 21:09) Methylnaltrexone Injection (Relistor Inj (10/10/16 21:15) Diazepam Injection (Valium Injection) (10/10/16 22:30) Medications Given in ED Vital Signs/I&O Blood Pressure Mean: 112 Diagnostic Imaging Diagonstic Imaging: CT Plain Films/CT/US/NM/MRI: abdomen, pelvis Comments FINDINGS: Lower chest: The lung bases are clear. No pericardial or pleural effusion. Peritoneum: Trace free pelvic fluid, likely physiologic in a female this age. No free intraperitoneal air Liver and biliary system: Stable 1.2 cm hemangioma within the left hepatic lobe. No new hepatic lesions. Status post cholecystectomy. No biliary duct dilatation. Spleen and Pancreas: Spleen is normal. The pancreas enhances normally without mass lesion or peripancreatic inflammatory changes. Adrenals: Normal. tract: The kidneys enhance normally without suspicious mass or obstruction. Urinary bladder is distended without wall thickening. Hysterectomy. Ovaries are normal in appearance. Previously noted bilateral ovarian cysts have resolved. GI tract: Stomach is decompressed. No bowel obstruction. Fluid-filled nondilated loops of small bowel and cecum suggest enteritis. No pericolonic inflammatory changes. The appendix is not seen with certainty although there are no inflammatory changes in the right lower quadrant to indicate acute appendicitis. Vasculature and Lymph nodes: Normal caliber aorta. No abdominal or pelvic lymphadenopathy. Musculoskeletal: No concerning osseous lesion. IMPRESSION: 1. Findings suggestive of an enteritis. No bowel obstruction. 2. Trace free pelvic fluid is likely physiologic in a female of this age. Previously noted bilateral ovarian cysts have resolved. Dictated on workstation # [id number] Reviewed: Reviewed by Me (radiology report reviewed by me) Departure Communication Progress Notes 2149 patient case discussed with Carlene Lim. Recommendations by Dr. Lim are for continuing current home Percocet and with follow-up on Sunday with Dr. Frazier as previously scheduled. All laboratory findings, diagnostic study findings, and recommendations by Dr. Lim were discussed with the patient. Patient reports time much better after being given Dilaudid. Plan for discharge home with follow-up as an outpatient Sunday with Dr. Frazier. Patient instructed to contact his office sooner if needed. All return precautions were discussed with the patient as described in the discharge instructions and this report. Patient voices understanding and agrees with the treatment plan. Patient case discussed with attending MD Luly. He agrees with the plan of care. Impression Impression: Primary Impression: Post-operative pain Additional Impressions: Nausea & vomiting Qualified Codes: R11.2 - Nausea with vomiting, unspecified S/P hysterectomy Disposition: HOME, SELF-CARE Condition: Improved Departure-Patient Inst. Decision time for Depature: 22:00 Referrals: ZAN FRAZIER DO (PCP) Primary Care Physician Patient Instructions: Constipation, Adult (DC), Hysterectomy (DC), Nausea and Vomiting, Adult (DC) Add. Discharge Instructions: All discharge instructions reviewed with patient and/or family. Voiced understanding. Medications as instructed. Continue current home medications including Percocet. Ibuprofen 800 mg by mouth every 8 hours as needed for pain. Ice packs or heating pads if needed for pain. Continue current postoperative orders as directed by Dr. Frazier. Follow-up with Dr. Frazier on Sunday as previously scheduled, or contact his office sooner if needed. Clear liquid diet until symptoms improve, then increase diet slowly to a low-fat , bland diet. Return to the emergency department for worsened pain, fever, vomiting, vomiting blood, rectal bleeding, black stools, abdominal swelling, vaginal bleeding, vaginal discharge, inability to urinate, or any other concerns. Scripts Polyethylene Glycol 3350 (Miralax) 119 Gm Powder 17 GM PO HS, #1 EA 0 Refills Prov: GARY NEVES 10/10/16 Promethazine HCl (Promethazine Tablet) 25 Mg Tablet 25 MG PO Q6H Y for NAUSEA/VOMITING, #10 TAB 0 Refills Prov: GARY NEEVS 10/10/16 GARY NEVES Oct 10, 2016 20:40
[2016-10-10 20:55] LABS: ALANINE AMINOTRANSFERASE 259 U/L (0-55); ALBUMIN 3.6 G/DL (3.2-4.5); ANION GAP 9 MMOL/L (5-14); ASPARTATE AMINO TRANSFERASE 386 U/L (5-34); BILIRUBIN,TOTAL 0.5 MG/DL (0.1-1.0); BLOOD UREA NITROGEN 9 MG/DL (7-18); BUN/CREATININE RATIO 11; CALCIUM 8.8 MG/DL (8.5-10.1); CARBON DIOXIDE 27 MMOL/L (21-32); CHLORIDE 102 MMOL/L (98-107); CREATININE SERUM 0.84 MG/DL (0.60-1.30); GFR ESTIMATED > 60; GLUCOSE 102 MG/DL (70-105); POTASSIUM 4.1 MMOL/L (3.6-5.0); SODIUM 138 MMOL/L (135-145); TOTAL PROTEIN 6.4 G/DL (6.4-8.2)
[2016-10-10] MEDS ORDERED: morphine INJ 10 MG/ML 1ML (SYR OR VIAL) IVP STA (21:09)
[2016-10-10] MEDS ORDERED: NS IV 1000 ML 1,000 ML IV ONE (21:09)
[2016-10-10] MEDS ORDERED: PROMETHAZINE INJ 25 MG/ML (PHENERGAN) AMP IVP ONE (21:15)
[2016-10-10] MEDS ORDERED: METHYLNALTREXONE 12 MG/0.6 ML (RELISTOR) VIAL SQ ONE (21:15)
--- NOTE | 2016-10-10 21:17 | Diagnostic Imaging Report ---
PROCEDURE: CT abdomen and pelvis with contrast. TECHNIQUE: Multiple contiguous axial images were obtained through the abdomen and pelvis after administration of intravenous contrast. INDICATION: Abdominal pain. COMPARISON: CT abdomen and pelvis from 08/25/2016 FINDINGS: Lower chest: The lung bases are clear. No pericardial or pleural effusion. Peritoneum: Trace free pelvic fluid, likely physiologic in a female this age. No free intraperitoneal air Liver and biliary system: Stable 1.2 cm hemangioma within the left hepatic lobe. No new hepatic lesions. Status post cholecystectomy. No biliary duct dilatation. Spleen and Pancreas: Spleen is normal. The pancreas enhances normally without mass lesion or peripancreatic inflammatory changes. Adrenals: Normal. tract: The kidneys enhance normally without suspicious mass or obstruction. Urinary bladder is distended without wall thickening. Hysterectomy. Ovaries are normal in appearance. Previously noted bilateral ovarian cysts have resolved. GI tract: Stomach is decompressed. No bowel obstruction. Fluid-filled nondilated loops of small bowel and cecum suggest enteritis. No pericolonic inflammatory changes. The appendix is not seen with certainty although there are no inflammatory changes in the right lower quadrant to indicate acute appendicitis. Vasculature and Lymph nodes: Normal caliber aorta. No abdominal or pelvic lymphadenopathy. Musculoskeletal: No concerning osseous lesion. IMPRESSION: 1. Findings suggestive of an enteritis. No bowel obstruction. 2. Trace free pelvic fluid is likely physiologic in a female of this age. Previously noted bilateral ovarian cysts have resolved. Dictated by: Dictated on workstation # [id number]
[2016-10-10 21:23] LABS: BILIRUBIN,URINE NEGATIVE (NEGATIVE); KETONES,URINE NEGATIVE (NEGATIVE); LEUKOCYTE ESTERASE ,URINE NEGATIVE (NEGATIVE); NITRITE,URINE NEGATIVE (NEGATIVE); PH,URINE 8 (5-9); PROTEIN,URINE NEGATIVE (NEGATIVE); UROBILINOGEN,URINE NORMAL (NORMAL)
[2016-10-10 21:33] LABS: WBC,URINE RARE /HPF
[2016-10-10] MEDS ORDERED: POLY119P5 PO (22:05)
[2016-10-10] MEDS ORDERED: PROM25TA14 PO (22:05)
[2016-10-10] MEDS ORDERED: DIAZEPAM INJ 10 MG/2 ML (VALIUM) SYR IV ONE (22:30)
[2016-10-10 22:42] VITALS: BP 125/89
== END 2016-10-10 22:42 | disposition home or self-care (01) ==
LOC: EDUNIT# 19:33 → ER 19:34
DX: G89.18 Other acute postprocedural pain (principal); R11.2 Nausea with vomiting, unspecified; Z90.710 Acquired absence of both cervix and uterus; Z79.899 Other long term (current) drug therapy
CPT/HCPCS: 36415; 74177; 80053; 81000; 85025; 96361; 96372; 96374; 96375

== ENCOUNTER 2016-11-15 19:59 | Emergency (ER) | payer MEDICAID, OTHER ==
[~2016-11-15] VITALS: Ht 157.5 cm; Wt 104.3 kg
[~2016-11-15 19:59] MED LIST changes: +POLY119P5 PO; +PROM25TA14 PO
[2016-11-15] MEDS ORDERED: ESCI10TA55 PO (20:46)
[2016-11-15] MEDS ORDERED: ACET-77 PO (20:46)
[2016-11-15] MEDS ORDERED: DOXY100C42 PO (20:46)
[2016-11-15] MEDS ORDERED: METR500T PO (20:46)
[2016-11-15 21:08] LABS: BASOPHILS % (AUTO) 0 % (0-10); EOSINOPHILS # (AUTO) 0.3 10^3/uL (0.0-0.3); EOSINOPHILS % (AUTO) 5 % (0-10); LYMPHOCYTES # (AUTO) 2.1 X 10^3 (1.0-4.0); LYMPHOCYTES % (AUTO) 33 % (12-44); MEAN CORPUSCULAR HEMOGLOBIN 29 PG (25-34); MEAN CORPUSCULAR HGB CONC 34 G/DL (32-36); MEAN CORPUSCULAR VOLUME 86 FL (80-99); MEAN PLATELET VOLUME 9.1 FL (7.4-10.4); MONOCYTES # (AUTO) 0.5 X 10^3 (0.0-1.0); MONOCYTES % (AUTO) 8 % (0-12); NEUTROPHILS # (AUTO) 3.3 X 10^3 (1.8-7.8); NEUTROPHILS % (AUTO) 54 % (42-75); PLATELET COUNT 328 10^3/uL (130-400); RED BLOOD COUNT 4.22 10^6/uL (4.35-5.85); RED CELL DISTRIBUTION WIDTH 13.5 % (10.0-14.5); WHITE BLOOD COUNT 6.1 10^3/uL (4.3-11.0)
[2016-11-15 21:28] LABS: ALANINE AMINOTRANSFERASE 8 U/L (0-55); ALBUMIN 3.8 G/DL (3.2-4.5); AMYLASE 61 U/L (25-125); ANION GAP 11 MMOL/L (5-14); ASPARTATE AMINO TRANSFERASE 14 U/L (5-34); BILIRUBIN,TOTAL 0.2 MG/DL (0.1-1.0); BLOOD UREA NITROGEN 11 MG/DL (7-18); BUN/CREATININE RATIO 14; CALCIUM 8.7 MG/DL (8.5-10.1); CARBON DIOXIDE 21 MMOL/L (21-32); CHLORIDE 109 MMOL/L (98-107); CREATININE SERUM 0.81 MG/DL (0.60-1.30); GFR ESTIMATED > 60; GLUCOSE 92 MG/DL (70-105); LIPASE 43 U/L (8-78); POTASSIUM 4.2 MMOL/L (3.6-5.0); SODIUM 141 MMOL/L (135-145); TOTAL PROTEIN 6.6 G/DL (6.4-8.2)
[2016-11-15 21:43] LABS: BILIRUBIN,URINE NEGATIVE (NEGATIVE); KETONES,URINE NEGATIVE (NEGATIVE); LEUKOCYTE ESTERASE ,URINE NEGATIVE (NEGATIVE); NITRITE,URINE NEGATIVE (NEGATIVE); PH,URINE 5 (5-9); PROTEIN,URINE NEGATIVE (NEGATIVE); UROBILINOGEN,URINE NORMAL (NORMAL)
--- NOTE | 2016-11-15 21:56 | ED Abdominal Pain ---
General Chief Complaint: Abdominal/GI Problems Stated Complaint: ABD PAIN- Nursing Triage Note: PT PRESENTS TO THE ER WITH REPORT OF ABDOMINAL PAIN. PT HAD A HYSTORECTOMY ON September AND CLAIMS ALL OF HER SYMPTOMS STARTED APPROXIMATELY TWO WEEKS AFTER. SHE IS RATING HER PAIN AN 8/10 AND REPORTS PAIN SIMILAR TO LABOR PAIN. Sepsis Screen: No Definite Risk Source of Information: Patient, Old Records History of Present Illness Time Seen By Provider: 21:35 Initial Comments PT C/O DIFFUSE ABDOMINAL PAIN, WORSE ALL ACROSS LOWER ABDOMEN PT STATES THIS PAIN STARTED "2 WEEKS AFTER OCTOBER 02" PT HAD ROBOTIC HYSTERECTOMY BY DR. FRAZIER 10/05/16 --OVARIES INTACT PT SEEN HERE FOR POST OP PAIN, MOSTLY IN RIGHT GROIN ON 10/10/[address] SCAN DONE WHICH SHOWED POSSIBLE ENTERITIS, NORMAL APPEARING OVARIES AND TRACE OF PELVIC FLUID PT STATES SHE WENT TO [place] 3 WEEKS AGO FOR THIS PROBLEM AND WAS ADMITTED FOR 3 DAYS FOR "MASS/INFECTION UNDER INCISION"--PT REPORTS SHE HAD A CT DONE AT THAT TIME. PT REPORTS SHE WAS NOT SENT HOME WITH ANY RX'S AT ALL. PT THEN STATES SHE WENT TO [facility] LAST Sunday11/06/16 FOR THIS SAME PROBLEM AND HAD ANOTHER CT WHICH REPORTEDLY SHOWED THE SAME THING CT DONE AT [place]. PT REPORTS THAT SHE WAS NOT SENT HOME WITH ANY RX'S FROM THERE EITHER PT STATES SHE THE SAW DR. FRAZIER THE FOLLOWING DAY FOR THE FIRST TIME SINCE SURGERY, AND WAS GIVEN RX FOR FLAGYL TWICE A DAY AND DOXYCYCLINE TWICE A DAY. PT HAS NOT ATTEMPTED TO FOLLOW UP WITH HIM AT ANY OTHER TIME PT STATES HER PAIN HAS BEEN WORSE FOR THE LAST 3 DAYS STATES SHE TOOK 1 TYLENOL LAST PM, AND 600 MG IBUPROFEN AT NOON TODAY, OTHERWISE HAS NOT TAKEN ANYTHING FOR PAIN PT STATES SHE HAS "FELT HOT" BUT HAS NOT CHECKED HER TEMPERATURE, AND NO CHILLS OR SWEATS + NAUSEA, MOSTLY WITH EATING--STATES SHE CAN'T EAT, BECAUSE HER ABDOMEN SWELLS AND PUSHES UP INTO HER CHEST WHEN SHE TRIES TO EAT. NO VOMITING. ALSO DOES THE SAME THING IF SHE TRIES TO DRINK HAS BEEN TAKING MIRALAX EVERY DAY AND HAS HAD 3 NORMAL BM'S TODAY NO PROBLEMS URINATING AND HAS VOIDED A NORMAL AMOUNT TODAY PT ALSO STATES SHE HAS BEEN SPOTTING VAGINALLY SINCE SURGERY PT WITH 6 VISITS TO THIS ER IN 2017, PLUS THE ADMIT FOR SURGERY 10/05/16 PCP: Allergies and Home Medications Allergies Coded Allergies: Penicillins (Verified Allergy, Unknown, 04/17/16) acetaminophen (Verified Allergy, Unknown, 04/17/16) hydrocodone (Verified Allergy, Unknown, 04/17/16) omeprazole (Verified Allergy, Unknown, 04/17/16) ondansetron (Verified Allergy, Unknown, 04/17/16) Home Medications Acetaminophen 500 Mg Tablet, 500 MG PO, (Reported) Dicyclomine HCl 10 Mg Capsule, 10 MG PO Q4H, (Reported) Doxycycline Monohydrate 100 Mg Capsule, 100 MG PO BID, #28 (Reported) Escitalopram Oxalate 10 Mg Tablet, 10 MG PO DAILY, #30 (Reported) Ibuprofen 600 Mg Tablet, 600 MG PO Q6H PRN for PAIN, #80 Prescribed by: ZAN FRAZIER on 10/05/16 1244 Metronidazole 500 Mg Tablet, 500 MG PO BID, (Reported) Review of Systems Constitutional: see HPI Respiratory: No Symptoms Reported Cardiovascular: No Symptoms Reported Gastrointestinal: See HPI, Abdomen Distended, Abdominal Pain, Denies Diarrhea, Nausea, Poor Appetite, Poor Fluid Intake, Denies Vomiting Genitourinary: No Symptoms Reported Musculoskeletal: no symptoms reported Skin: no symptoms reported Psychiatric/Neurological: No Symptoms Reported Endocrine: No Symptoms Reported Hematologic/Lymphatic: No Symptoms Reported Past Oownkxb-Jkpwao-Qgqftb Hx Patient Social History Alcohol Use: Denies Use Recreational Drug Use: No Smoking Status: Never a Smoker 2nd Hand Smoke Exposure: No Recent Foreign Travel: No Contact w/Someone Who Travel: No Recent Infectious Disease Expo: No Recent Hopitalizations: Yes (Robotic hyst last ) Immunizations Up To Date Tetanus Booster (TDap): Unknown Seasonal Allergies Seasonal Allergies: Yes Surgeries HX Surgeries: Yes (kidney stone removal, L knee scope, Robotic vag hyst -DR. 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 Genitourinary Hx Genitourinary Disorders: Yes Genitourinary Disorders: Kidney Stones Gastrointestinal Hx Gastrointestinal Disorders: Yes (celiac disease) Gastrointestinal Disorders: Chronic Diarrhea Musculoskeletal Hx Musculoskeletal Disorders: Yes Musculoskeletal Disorders: Chronic Back Pain Endocrine Hx Endocrine Disorders: No (obesity) HEENT HX ENT Disorders: No Cancer Hx Cancer: No Psychosocial Hx Psychiatric Problems: Yes Behavioral Health Disorders: Anxiety Integumentary HX Skin/Integumentary Disorder: No Blood Transfusions Hx Blood Disorders: No Adverse Reaction to a Blood Tr: No Family Medical History Family Medial History: Alcoholism 19 MOTHER Hypertension 19 FATHER Psychosocial problem 19 MOTHER G8 BROTHER Physical Exam Vital Signs VS - Last 72 Hours, by Label 11/15/16 20:21 Temp 98.1 Pulse 90 Resp 18 B/P (MAP) 129/85 Pulse Ox 97 O2 Delivery Room Air Capillary Refill : Less Than 3 Seconds General Appearance: WD/WN, obese, other (SITTING -STYLE. MOVES WITHOUT DIFFICULTY. DOES NOT APPEAR TO BE IN ANY DISCOMFORT. ) HEENT: PERRL/EOMI, other (MULTIPLE MISSING TEETH, AND FEW REMAINING TEETH WITH POOR HYGIENE AND EXTENSIVE DECAY) Neck: normal inspection Respiratory: normal breath sounds, no respiratory distress, no accessory muscle use Cardiovascular: regular rate, rhythm, no murmur Gastrointestinal: abnormal bowel sounds (RARE), distended (AND FIRM), tenderness (DIFFUSE TENDERNESS, BUT MOST TENDER ACROSS ENTIRE LOWER ABDOMEN), No hernia, No mass, other (SURGICAL INCISIONS WELL HEALED WITH NO SIGNS OF INFECTION) Extremities: normal inspection, no pedal edema, normal capillary refill Back: no CVA tenderness 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, no motor/sensory deficits, alert, normal mood/affect, oriented x 3 Skin: normal color, warm/dry Progress/Results/Core Measures Results/Orders Lab Results Laboratory Tests Test 11/15/16 20:06 11/15/16 21:00 11/15/16 21:28 Range/Units Urine Opiates Screen NEGATIVE NEGATIVE Urine Oxycodone Screen NEGATIVE NEGATIVE Urine Methadone Screen NEGATIVE NEGATIVE Urine Propoxyphene Screen NEGATIVE NEGATIVE Urine Barbiturates Screen NEGATIVE NEGATIVE Ur Tricyclic Antidepressants Screen NEGATIVE NEGATIVE Urine Phencyclidine Screen NEGATIVE NEGATIVE Urine Amphetamines Screen NEGATIVE NEGATIVE Urine Methamphetamines Screen NEGATIVE NEGATIVE Urine Benzodiazepines Screen NEGATIVE NEGATIVE Urine Cocaine Screen NEGATIVE NEGATIVE Urine Cannabinoids Screen NEGATIVE NEGATIVE White Blood Count 6.1 4.3-11.0 10^3/uL Red Blood Count 4.22 L 4.35-5.85 10^6/uL Hemoglobin 12.3 11.5-16.0 G/DL Hematocrit 36 35-52 % Mean Corpuscular Volume 86 80-99 FL Mean Corpuscular Hemoglobin 29 25-34 PG Mean Corpuscular Hemoglobin Concent 34 32-36 G/DL Red Cell Distribution Width 13.5 10.0-14.5 % Platelet Count 328 130-400 10^3/uL Mean Platelet Volume 9.1 7.4-10.4 FL Neutrophils (%) (Auto) 54 42-75 % Lymphocytes (%) (Auto) 33 12-44 % Monocytes (%) (Auto) 8 0-12 % Eosinophils (%) (Auto) 5 0-10 % Basophils (%) (Auto) 0 0-10 % Neutrophils # (Auto) 3.3 1.8-7.8 X 10^3 Lymphocytes # (Auto) 2.1 1.0-4.0 X 10^3 Monocytes # (Auto) 0.5 0.0-1.0 X 10^3 Eosinophils # (Auto) 0.3 0.0-0.3 10^3/uL Basophils # (Auto) 0.0 0.0-0.1 10^3/uL Sodium Level 141 135-145 MMOL/L Potassium Level 4.2 3.6-5.0 MMOL/L Chloride Level 109 H 98-107 MMOL/L Carbon Dioxide Level 21 21-32 MMOL/L Anion Gap 11 5-14 MMOL/L Blood Urea Nitrogen 11 7-18 MG/DL Creatinine 0.81 0.60-1.30 MG/DL Estimat Glomerular Filtration Rate > 60 BUN/Creatinine Ratio 14 Glucose Level 92 70-105 MG/DL Calcium Level 8.7 8.5-10.1 MG/DL Total Bilirubin 0.2 0.1-1.0 MG/DL Aspartate Amino Transf (AST/SGOT) 14 5-34 U/L Alanine Aminotransferase (ALT/SGPT) 8 0-55 U/L Alkaline Phosphatase 66 40-136 U/L Total Protein 6.6 6.4-8.2 G/DL Albumin 3.8 3.2-4.5 G/DL Amylase Level 61 25-125 U/L Lipase 43 8-78 U/L Urine Color YELLOW Urine Clarity SLIGHTLY CLOUDY Urine pH 5 5-9 Urine Specific [place] 1.025 H 1.016-1.022 Urine Protein NEGATIVE NEGATIVE Urine Glucose (UA) NEGATIVE NEGATIVE Urine Ketones NEGATIVE NEGATIVE Urine Nitrite NEGATIVE NEGATIVE Urine Bilirubin NEGATIVE NEGATIVE Urine Urobilinogen NORMAL NORMAL MG/DL Urine Leukocyte Esterase NEGATIVE NEGATIVE Urine RBC (Auto) NEGATIVE NEGATIVE Urine RBC NONE /HPF Urine WBC RARE /HPF Urine Squamous Epithelial Cells 2-5 /HPF Urine Crystals NONE /LPF Urine Bacteria NEGATIVE /HPF Urine Casts NONE /LPF Urine Mucus MODERATE H /LPF Urine Culture Indicated NO My Orders Orders - EDWARD GIFFORD DO Saline Lock/Iv-Start (11/15/16 20:36) Amylase (11/15/16 20:36) Cbc With Automated Diff (11/15/16 20:36) Comprehensive Metabolic Panel (11/15/16 20:36) Lipase (11/15/16 20:36) Drug Screen Stat (Urine) (11/15/16 20:48) Ct Abdomen/Pelvis W (11/15/16 21:25) Acute Abd Series (11/15/16 21:26) Ua Culture If Indicated (11/15/16 21:37) Iohexol Injection (Omnipaque 350 Mg/Ml 1 (11/15/16 22:00) Ns (Ivpb) (Sodium Chloride 0.9% Ivpb Bag (11/15/16 22:00) Di Iv Start (Assessment) .on IV start (11/15/16 21:55) Medications Given in ED Current Medications Medications Dose Ordered Sig/Bienvenido Route Start Time Stop Time Status Last Admin Dose Admin Iohexol 100 ml ONCE ONCE IV 11/15/16 22:00 11/15/16 22:01 DC 11/15/16 22:13 100 ML Sodium Chloride 100 ml ONCE ONCE IV 11/15/16 22:00 11/15/16 22:01 DC 11/15/16 22:13 100 ML Vital Signs/I&O Vital Sign - Last 12Hours 11/15/16 20:21 Temp 98.1 Pulse 90 Resp 18 B/P (MAP) 129/85 Pulse Ox 97 O2 Delivery Room Air Blood Pressure Mean: 100 Progress Note : Progress Note UNEVENTFUL ER STAY Diagnostic Imaging Comments ACUTE ABDOMEN XRAYS--NO ACUTE PROCESS, PENDING RADIOLOGIST REVIEW CT ABDOMEN / PELVIS--3.4 X 2.6. X 2 CM ENHANCING FLUID COLLECTION IN SURGICAL BED AREA OF VAGINAL CUFFE-CONCERNING FOR ABSCERSS. 2.1 CM LEFT OVARIAN CYST, OTHERWISE NO OTHER ACUTE ABNORMALITIES--PER [facility] VIA FAX @ [phone] Reviewed: Reviewed by Me Departure Communication Progress Notes 2497--SPOKE WITH DR. FRAZIER, AND STATES THE SIZE OF THE ABSCESS IS STABLE, AND ADVISES TO HAVE PT CONTINUE CURRENT MEDICATIONS AND TO FOLLOW UP WITH HIM PREVIOUSLY DISCUSSED WITH PT Impression Impression: Primary Impression: POST OP ABSCESS TO VAGINAL CUFF Additional Impression: Postoperative abdominal pain Disposition: HOME, SELF-CARE Condition: Stable Departure-Patient Inst. Referrals: ZAN FRAZIER DO (PCP/Family) Primary Care Physician Patient Instructions: Postoperative Pain (DC), Surgical Wound (DC) Add. Discharge Instructions: LOTS OF CLEAR LIQUIDS--WATER, BROTH, JELLO, GATORADE BRATS DIET--BANANAS, RICE, APPLESAUCE, TOAST, SALTINES CONTINUE YOUR ANTIBIOTICS PRESCRIBED TAKE MIRALAX DAILY FOLLOW UP WITH DR. FRAZIER INSTRUCTED All discharge instructions reviewed with patient and/or family. Voiced understanding. Scripts Ketorolac Tromethamine (Ketorolac Tromethamine) 10 Mg Tablet 10 MG PO Q6H for Pain, #15 TAB Prov: EDWARD GIFFORD DO 11/15/16 Famotidine (Pepcid) 40 Mg Tablet 40 MG PO DAILY, #30 TAB Prov: EDWARD GIFFORD DO 11/15/16 Hyoscyamine Sulfate (Levsin-Sl) 0.125 Mg Tab.subl 1-2 TAB SL Q4H for Abdominal Pain, #15 TAB Prov: EDWARD GIFFORD DO 11/15/16 EDWARD GIFFORD DO November 15, 2016 21:56
[2016-11-15 22:13] LABS: WBC,URINE RARE /HPF
[2016-11-15] MEDS: IOHEXOL 350 MG/ML 100 ML (OMNIPAQUE 350) VIAL IV ONE (22:13)
[2016-11-15] MEDS: NS 100 ML (IVPB) BAG IV ONE (22:13)
[2016-11-15] MEDS: KETOROLAC 30 MG/ML VIAL IVP STA (23:00)
[2016-11-15] MEDS ORDERED: HYOS0.1283 SL (23:01)
[2016-11-15] MEDS ORDERED: FAMO40TA72 PO (23:01)
[2016-11-15] MEDS ORDERED: KETO10TA PO (23:01)
[2016-11-15 23:11] VITALS: BP 124/86
--- NOTE | 2016-11-16 07:09 | Diagnostic Imaging Report ---
CLINICAL INDICATION: Patient with right-sided abdominal pain since having hysterectomy in September of 2016. Patient having sharp pain to right lower quadrant. EXAMS: X-ray of the chest PA view and x-ray of the abdomen supine and upright views. COMPARISONS: None. FINDINGS: LUNGS/ PLEURA: Lungs are clear. There is no pneumothorax. There is no pleural effusion. MEDIASTINUM: Unremarkable. PULMONARY VASCULATURE: Unremarkable. HEART: Unremarkable. BONES/ EXTRATHORACIC SOFT TISSUE: Unremarkable. ABDOMEN AND PELVIS: Unremarkable x-ray of the abdomen with nonobstructed bowel gas pattern. There is no evidence of abdominal free air. Surgical clips are seen overlying the right upper quadrant which could be related to cholecystectomy changes. There is a small amount of stool seen throughout the colon. There are no focal calcifications overlying the expected regions/ pathways of both kidneys, ureters, and bladder regions. Small phleboliths seen in the left side of the pelvis. IMPRESSION: 1: There is no radiographic evidence of acute cardiopulmonary process. 2: There is no radiographic evidence of acute abdominal or pelvic process. 3: There is a small amount of stool seen throughout the colon. Dictated by: Dictated on workstation # [id number]
--- NOTE | 2016-11-16 07:19 | Diagnostic Imaging Report ---
PROCEDURE: CT abdomen and pelvis with contrast. TECHNIQUE: Multiple contiguous axial images were obtained through the abdomen and pelvis after administration of intravenous contrast. INDICATION: Hysterectomy in September, right-sided pain. Exam compared 10/10/2016. FINDINGS: Within the region of the cul-de-sac anterior to the rectum posterior to the level of the vaginal cuff is a rim-enhancing fluid collection measuring 3 cm x 2.2 cm suspicious for abscess. The left adnexal cyst may be a corpus luteal cyst given its rim enhancement measuring 2 cm with adjacent small volume nonloculated fluid. The urinary bladder appeared normal. There is no bowel, biliary or urinary tract obstruction. The gallbladder is surgically absent. Spleen, adrenals and pancreas are negative. Nonspecific low-density hepatic focus of 12 mm unchanged from the prior indeterminate. Pancreas is normal. Aortoiliac and mesenteric vessels patent and nonaneurysmal. IMPRESSION: Rim-enhancing complex pelvic fluid collection at the midline anterior to the rectum posterior superior to the vaginal cuff suspicious for small abscess. The left ovarian cyst and adjacent trace free fluid. Unobstructed normal-appearing urinary tracts. Indeterminate hepatic nodule stable. No other substantial finding. Dictated by: Dictated on workstation # [id number]
== END 2016-11-15 23:11 | disposition home or self-care (01) ==
LOC: EDUNIT# 19:59 → ER 20:02
DX: G89.18 Other acute postprocedural pain (principal); N76.4 Abscess of vulva; Z90.710 Acquired absence of both cervix and uterus
CPT/HCPCS: 36415; 51701; 74022; 74177; 80053; 80306; 81000; 82150; 83690; 85025; 96374

== ENCOUNTER 2017-05-29 09:39 | Emergency (ER) | payer MEDICAID ==
[~2017-05-29] VITALS: Ht 157.5 cm; Wt 108.0 kg
[~2017-05-29 09:39] MED LIST changes: +ACET-77 PO; +DOXY100C42 PO; +ESCI10TA55 PO; +FAMO40TA72 PO; +HYOS0.1283 SL; +KETO10TA PO; +METR500T PO
[2017-05-29] MEDS ORDERED: TOPI50TA13 (10:03)
--- NOTE | 2017-05-29 10:28 | Diagnostic Imaging Report ---
3 views of the left ankle. INDICATION: Injury. No prior studies are available for comparison. FINDINGS: There is a fracture through the inferior aspect of the medial malleolus with fracture fragment measuring one CM in length. This is favored to be an acute fracture. The ankle mortise and the joint alignment is satisfactory. No other fracture is identified. Calcaneal spurs are noted. No radiopaque foreign body seen. There is soft tissue swelling around the ankle seen. IMPRESSION: 1 cm fracture fragment from the undersurface of the medial malleolus, probably acute. Correlate clinically. Dictated by: Dictated on workstation # [id number]
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
[2017-05-29] MEDS ORDERED: OXYC-471 PO (10:55)
[2017-05-29 11:13] VITALS: BP 100/40
== END 2017-05-29 11:12 | disposition home or self-care (01) ==
LOC: EDUNIT# 09:39 → ER 09:42
DX: S82.52XA Displaced fracture of medial malleolus of left tibia, initial encounter for closed fracture (principal); I25.2 Old myocardial infarction; G40.909 Epilepsy, unspecified, not intractable, without status epilepticus; E66.9 Obesity, unspecified; F41.9 Anxiety disorder, unspecified; G43.909 Migraine, unspecified, not intractable, without status migrainosus; Z68.41 Body mass index [BMI] 40.0-44.9, adult; Z87.442 Personal history of urinary calculi; Z87.19 Personal history of other diseases of the digestive system; Z90.710 Acquired absence of both cervix and uterus; Z98.51 Tubal ligation status; W10.1XXA Fall (on)(from) sidewalk curb, initial encounter; X50.0XXA Overexertion from strenuous movement or load, initial encounter; Y92.480 Sidewalk as the place of occurrence of the external cause
CPT/HCPCS: 29505; 73610

== ENCOUNTER 2017-08-06 20:02 | Emergency (ER) | payer MEDICAID, OTHER ==
[~2017-08-06] VITALS: Ht 157.5 cm; Wt 90.7 kg
[~2017-08-06 20:02] MED LIST changes: +OXYC-471 PO; +TOPI50TA13
--- OUTSIDE RECORDS SUMMARY | 2017-08-06 20:06 | XMS REPORT ---
Author Author HANNA RODRIGUEZ Organization [facility] Address [address] [place] [address] Care Team Providers Care Clinical Biochemist Name Role Phone HANNA RODRIGUEZ Unavailable PROBLEMS Type Condition ICD9-CM Code [id number] Code Onset Dates Condition Status SNOMED Code Problem Depression with anxiety F41.8 Active 010764414 Problem Pain of upper abdomen R10.10 Active 80574025 Problem Celiac disease K90.0 Active 833222987 Problem Tension headache G44.209 Active 803424740 ALLERGIES Substance Reaction Event Type Date Status Zofran itching/ swelling Drug Allergy Aug, Active Prilosec itching/ swelling Drug Allergy Aug, Active Penicillin G Sodium stops heart Drug Allergy Aug, Active Lortab itching/ swelling Drug Allergy Aug, Active SOCIAL HISTORY Never Assessed PLAN OF CARE VITAL SIGNS MEDICATIONS Medication Instructions Dosage Frequency Start Date End Date Duration Status Tylenol 325 MG Orally every 6 hrs 1 tablet 6h Active Ibuprofen 200 MG Orally every 6 hrs 1 tablet as needed 6h Active Percocet 5-325 MG Orally every 4 hrs 1 tablet as needed 4h Aug, Active Advil 200 MG Orally every 6 hrs 3 capsule as needed 6h Active Bactrim DS 800-160 MG Orally Twice a day 1 tablet 12h Aug, Active RESULTS No Results PROCEDURES No Known procedures IMMUNIZATIONS No Known Immunizations MEDICAL (GENERAL) HISTORY Type Description Date Medical History depression Medical History kidney stones Medical History migraine headaches Medical History ovarian cysts Medical History Celiac disease Medical History tumor on uterus Surgical History tubal ligation 2003 Surgical History L Knee scope Surgical History 4 kidney stones removed Surgical History cholecystectomy Surgical History partial hysterectomy September Hospitalization History surgeries Hospitalization History child
--- OUTSIDE RECORDS SUMMARY | 2017-08-06 20:07 | XMS REPORT ---
Author Author [facility] Address [address] [place] [address] Care Team Providers Care Fit Model Name Role Phone HANNA RODRIGUEZ Unavailable PROBLEMS Type Condition ICD9-CM Code [id number]-FC Code Onset Dates Condition Status SNOMED Code Problem Depression with anxiety F41.8 Active 324264778 Problem Pain of upper abdomen R10.10 Active 05845530 Problem Celiac disease K90.0 Active 212080326 Problem Tension headache G44.209 Active 674255889 ALLERGIES No Information SOCIAL HISTORY Never Assessed PLAN OF CARE VITAL SIGNS MEDICATIONS No Known Medications RESULTS No Results PROCEDURES No Known procedures [...]
--- OUTSIDE RECORDS SUMMARY | 2017-08-06 20:07 | XMS REPORT | CCD ---
Author Author JANEY JARVIS [facility] Unknown Address [address] [place] [address] Care Team Providers Care Internet Cafe Manager Name Role Phone AL DE DIOS, ZAN Dudley ZAN MELENDEZ MD Allergies Unknown or Not Available. Active Medications Unknown or Not Available. Problems Unknown or Not Available. Procedures Unknown or Not Available. Results Unknown or Not Available. Function Status Unknown or Not Available. History of Immunizations Unknown or Not Available. Plan of Treatment Unknown or Not Available. Social History Smoking Status Code Start Date End Date Never smoker [id number] Vital Signs Unknown or Not Available. Function Status Unknown or Not Available. Goals Unknown or Not Available. ASSESSMENTS Unknown or Not Available. Health Concerns Section Unknown or Not Available.
--- OUTSIDE RECORDS SUMMARY | 2017-08-06 20:07 | XMS REPORT ---
Author Author HANNA RODRIGUEZ Organization [facility] Address [address] [place] [address] Care Team Providers Care Head Of Housekeeping Name Role Phone HANNA RODRIGUEZ Unavailable PROBLEMS Type Condition ICD9-CM Code [id number] Code Onset Dates Condition Status SNOMED Code Problem Depression with anxiety F41.8 Active 045881872 Problem Pain of upper abdomen R10.10 Active 15319499 Problem Celiac disease K90.0 Active 049346171 Problem Tension headache G44.209 Active 172095055 ALLERGIES Substance Reaction Event Type Date Status Zofran itching/ swelling Drug Allergy Sep, Active Prilosec itching/ swelling Drug Allergy Sep, Active Penicillin G Sodium stops heart Drug Allergy Sep, Active Lortab itching/ swelling Drug Allergy Sep, Active SOCIAL HISTORY Never Assessed PLAN OF CARE Activity Details Follow Up 4 Weeks Reason:f/u abdominal bloating VITAL SIGNS Height 62 in 2016-09-22 Weight 225.0 lbs 2016-09-22 Temperature 98.1 degrees Fahrenheit 2016-09-22 Heart Rate 94 bpm 2016-09-22 Respiratory Rate 18 2016-09-22 BMI 41.15 kg/m2 2016-09-22 Blood pressure systolic 110 mmHg 2016-09-22 Blood pressure diastolic 72 mmHg 2016-09-22 MEDICATIONS Medication Instructions Dosage Frequency Start Date End Date Duration Status Bentyl 10 mg Orally Four times a day as needed for bloating 1-2 capsules Sep, November, 30 day(s) Active Nexium 24HR 20 mg Orally Once a day 1 capsule 24h Aug, 14 days Active RESULTS No Results PROCEDURES No Known [...]
--- OUTSIDE RECORDS SUMMARY | 2017-08-06 20:07 | XMS REPORT ---
Author Author HANNA RODRIGUEZ [facility] Address [address] [place] [address] Care Team Providers Care Nissan Sales Consultant Name Role Phone HANNA RODRIGUEZ Unavailable PROBLEMS Type Condition ICD9-CM Code PVZ91-PN Code Onset Dates Condition Status SNOMED Code Problem Depression with anxiety F41.8 Active 882194038 Problem Pain of upper abdomen R10.10 Active 77526116 Problem Celiac disease K90.0 Active 993490968 Problem Tension headache G44.209 Active 992028554 ALLERGIES Substance Reaction Event Type Date Status Zofran itching/ swelling Drug Allergy Aug, Active Prilosec itching/ swelling Drug Allergy Aug, Active Penicillin G Sodium stops heart Drug Allergy Aug, Active Lortab itching/ swelling Drug Allergy Aug, Active SOCIAL HISTORY Never Assessed PLAN OF CARE Activity Details Follow Up prn Reason: VITAL SIGNS Height 62 in 2016-08-23 Weight 216.3 lbs 2016-08-23 Temperature 98.3 degrees Fahrenheit 2016-08-23 Heart Rate 92 bpm 2016-08-23 Respiratory Rate 20 2016-08-23 BMI 39.56 kg/m2 2016-08-23 Blood pressure systolic 126 mmHg 2016-08-23 Blood pressure diastolic 84 mmHg 2016-08-23 MEDICATIONS Medication Instructions Dosage Frequency Start Date End Date Duration Status Baclofen 20 mg Orally every 8 hrs 1 tablet with food or milk 8h Aug, Aug, 14 days Active Ibuprofen 200 MG Orally every 6 hrs 1 tablet as needed 6h Active Fioricet 50-300-40 MG Orally every 4 hrs, may repeat x1 1 capsule as needed Aug, Aug, 07 days Active Tylenol 325 MG Orally every 6 hrs 1 tablet 6h Active Promethazine HCl 25 MG Orally 3 times a day 1 tablet as needed for nausea 8h Aug, Aug, 05 days Active Advil 200 MG Orally every 6 hrs 3 capsule as needed 6h Active RESULTS No Results PROCEDURES Procedure Date Ordered Result Body Site DEPO MEDROL 40 MG/ML Aug 23, 2016 THER/PROPH/DIAG INJ, SC/IM Aug 23, 2016 DEXAMETHASONE 4MG/ML (PER 1 MG) Aug 23, 2016 IMMUNIZATIONS Vaccine Route Administration Date Status DEXAMETHASONE 4MG/ML (PER 1 MG) Unknown Aug 23, 2016 Administered DEPO MEDROL 40 MG/ML IM Intramuscular Aug 23, 2016 Administered MEDICAL (GENERAL) HISTORY Type Description Date Medical [...]
--- OUTSIDE RECORDS SUMMARY | 2017-08-06 20:08 | XMS REPORT ---
Author Author HANNA RODRIGUEZ [facility] Address [address] [place] [address] Care Team Providers Care Production Planning Manager Name Role Phone HANNA RODRIGUEZ Unavailable PROBLEMS Type Condition ICD9-CM Code [id number] Code Onset Dates Condition Status SNOMED Code Problem Depression with anxiety F41.8 Active 222117573 Problem Pain of upper abdomen R10.10 Active 65229282 Problem Celiac disease K90.0 Active 640098086 Problem Tension headache G44.209 Active 466805246 ALLERGIES Substance Reaction Event Type Date Status Zofran itching/ swelling Drug Allergy Aug, Active Prilosec itching/ swelling Drug Allergy Aug, Active Penicillin G Sodium stops heart Drug Allergy Aug, Active Lortab itching/ swelling Drug Allergy Aug, Active SOCIAL HISTORY Never Assessed PLAN OF CARE Activity Details Follow Up prn Reason: VITAL SIGNS Height 62 in 2016-08-31 Weight 225.2 lbs 2016-08-31 Temperature 98.0 degrees Fahrenheit 2016-08-31 Heart Rate 98 bpm 2016-08-31 Respiratory Rate 20 2016-08-31 BMI 41.19 kg/m2 2016-08-31 Blood pressure systolic 120 mmHg 2016-08-31 Blood pressure diastolic 76 mmHg 2016-08-31 MEDICATIONS Medication Instructions Dosage Frequency Start Date End Date Duration Status Nexium 24HR 20 mg Orally Once a day 1 capsule 24h Aug, 14 days Active Ibuprofen 200 MG Orally every 6 hrs 1 tablet as needed 6h Active Promethazine HCl 25 MG Orally PRN 1 tablet 3 times daily Active Advil 200 MG Orally every 6 hrs 3 capsule as needed 6h Active Percocet 5-325 MG Orally every 4 hrs 1 tablet as needed 4h Aug, Active Bactrim DS 800-160 MG Orally Twice a day 1 tablet 12h Aug, Active Tylenol 325 MG Orally every 6 hrs 1 tablet 6h Active RESULTS Name Result Date Reference Range UA LONG DIP (IN HOUSE) 2016-08-31 Lot # [id number] Exp date Clarity clear Color yellow Odor none GLU negative SRINIVAS KET negative SG >=1.030 BLO Trace-inntact pH 5.5 Protein negative URO NIT negative FLAVIA Trace Lot # Exp date PROCEDURES Procedure Date Ordered Result Body Site URINALYSIS, AUTO, W/O SCOPE Aug 31, 2016 IMMUNIZATIONS No Known Immunizations MEDICAL (GENERAL) HISTORY [...]
--- OUTSIDE RECORDS SUMMARY | 2017-08-06 20:08 | XMS REPORT ---
Author Author HANNA RODRIGUEZ Organization [facility] Address [address] [place] [address] Care Team Providers Care Electric Refrigerator Preparer Name Role Phone HANNA RODRIGUEZ Unavailable PROBLEMS Type Condition ICD9-CM Code [id number] Code Onset Dates Condition Status SNOMED Code Problem Depression with anxiety F41.8 Active 423266001 Problem Pain of upper abdomen R10.10 Active 05583997 Problem Celiac disease K90.0 Active 525028265 Problem Tension headache G44.209 Active 177797191 ALLERGIES Substance Reaction Event Type Date Status Zofran itching/ swelling Drug Allergy Oct, Active Prilosec itching/ swelling Drug Allergy Oct, Active Penicillin G Sodium stops heart Drug Allergy Oct, Active Lortab itching/ swelling Drug Allergy Oct, Active SOCIAL HISTORY Never Assessed PLAN OF CARE Activity Details Follow Up 4 Weeks Reason:f/u anxiety VITAL SIGNS Height 62 in 2016-11-10 Weight 235.1 lbs 2016-11-10 Temperature 98.0 degrees Fahrenheit 2016-11-10 Heart Rate 72 bpm 2016-11-10 Respiratory Rate 18 2016-11-10 BMI 43.00 kg/m2 2016-11-10 Blood pressure systolic 118 mmHg 2016-11-10 Blood pressure diastolic 74 mmHg 2016-11-10 MEDICATIONS Medication Instructions Dosage Frequency Start Date End Date Duration Status Doxycycline Monohydrate 100 MG Orally 2 times a day 1 tablet 12h Oct, Active Lexapro 10 mg Orally Once a day 1 tablet 24h Oct, 30 day(s) Active Stool Softener 100 MG Orally Once a day 1 capsule as needed 24h Active Bentyl 10 mg Orally Four times a day as needed for bloating 1-2 capsules Sep, November, 30 day(s) Active Metronidazole 500 MG Orally Twice a day 1 tablet 12h Active RESULTS No Results PROCEDURES No Known [...]
--- OUTSIDE RECORDS SUMMARY | 2017-08-06 20:08 | XMS REPORT ---
Author Author [facility] Address [address] [place] [address] Care Team Providers Care Civil Process Server Name Role Phone HANNA RODRIGUEZ Unavailable PROBLEMS Type Condition ICD9-CM Code [id number] Code Onset Dates Condition Status SNOMED Code Problem Depression with anxiety F41.8 Active 074744436 Problem Pain of upper abdomen R10.10 Active 12341929 Problem Celiac disease K90.0 Active 829806639 Problem Tension headache G44.209 Active 920499698 ALLERGIES No Information SOCIAL HISTORY Never Assessed [...]
--- OUTSIDE RECORDS SUMMARY | 2017-08-06 20:08 | XMS REPORT ---
Author Author HANNA RODRIGUEZ [facility] Address [address] [place] [address] Care Team Providers Care Refractory Repairer Name Role Phone HANNA RODRIGUEZ Unavailable PROBLEMS Type Condition ICD9-CM Code BWV62-VS Code Onset Dates Condition Status SNOMED Code Problem Depression with anxiety F41.8 Active 815553953 Problem Pain of upper abdomen R10.10 Active 08359529 Problem Celiac disease K90.0 Active 277955106 Problem Tension headache G44.209 Active 078998046 ALLERGIES Substance Reaction Event Type Date Status Zofran itching/ swelling Drug Allergy Jun, Active Prilosec itching/ swelling Drug Allergy Jun, Active Penicillin G Sodium stops heart Drug Allergy Jun, Active Lortab itching/ swelling Drug Allergy Jun, Active SOCIAL HISTORY No smoking Hx information available PLAN OF CARE Activity Details Follow Up prn Reason: VITAL SIGNS Height 62 in 2016-07-14 Weight 212.5 lbs 2016-07-14 Temperature 97.9 degrees Fahrenheit 2016-07-14 Heart Rate 90 bpm 2016-07-14 Respiratory Rate 18 2016-07-14 Oximetry 96 % 2016-07-14 BMI 38.86 kg/m2 2016-07-14 Blood pressure systolic 110 mmHg 2016-07-14 Blood pressure diastolic 72 mmHg 2016-07-14 MEDICATIONS Medication Instructions Dosage Frequency Start Date End Date Duration Status Azithromycin 250 MG Orally Once a day 2 tablets on the first day, then 1 tablet daily for 4 days 24h 5 day(s) Active Promethazine-Codeine 6.25-10 MG/5ML Orally every 6 hrs 5 ml as needed 6h Jun, Jul, 05 days Active RESULTS No Results PROCEDURES Procedure Date Ordered Related Diagnosis Body Site MEASURE BLOOD OXYGEN LEVEL Jul 14, 2016 Office Visit, Est Pt., Level 3 Jul 14, 2016 THER/PROPH/DIAG INJ, SC/IM Jul 14, 2016 DEPO MEDROL 40 MG/ML Jul 14, 2016 DEXAMETHASONE 4MG/ML (PER 1 MG) Jul 14, 2016 IMMUNIZATIONS Vaccine Route Administration Date Status DEXAMETHASONE 4MG/ML (PER 1 MG) IM Intramuscular Jul 14, 2016 Administered DEPO MEDROL 40 MG/ML IM Intramuscular Jul 14, 2016 Administered
--- OUTSIDE RECORDS SUMMARY | 2017-08-06 20:08 | XMS REPORT ---
Author Author MARIA C SNOWDEN Organization [facility] Address [address] [place] [address] Care Team Providers Care Electronic Equipment Trades Worker Name Role Phone SP MARIA C Unavailable PROBLEMS Type Condition ICD9-CM Code ZWN91-GC Code Onset Dates Condition Status SNOMED Code Problem Depression with anxiety F41.8 Active 152536744 Problem Pain of upper abdomen R10.10 Active 65050072 Problem Celiac disease K90.0 Active 769888784 Problem Tension headache G44.209 Active 281155100 ALLERGIES Substance Reaction Event Type Date Status Zofran itching/ swelling Drug Allergy Jul, Active Prilosec itching/ swelling Drug Allergy Jul, Active Penicillin G Sodium stops heart Drug Allergy Jul, Active Lortab itching/ swelling Drug Allergy Jul, Active SOCIAL HISTORY No smoking Hx information available PLAN OF CARE Activity Details Follow Up prn Reason: VITAL SIGNS Height 62 in 2016-07-18 Weight 210.6 lbs 2016-07-18 Temperature 97.3 degrees Fahrenheit 2016-07-18 Heart Rate 80 bpm 2016-07-18 Respiratory Rate 20 2016-07-18 BMI 38.52 kg/m2 2016-07-18 Blood pressure systolic 104 mmHg 2016-07-18 Blood pressure diastolic 70 mmHg 2016-07-18 MEDICATIONS Medication Instructions Dosage Frequency Start Date End Date Duration Status Tessalon Perles 100 MG Orally Three times a day 1 capsule as needed 8h Jul, Jul, 10 days Active Promethazine HCl 12.5 MG Orally every 6 hrs 1 tablet as needed 6h Jul, Aug, 30 day(s) Active Azithromycin 250 MG Orally Once a day 2 tablets on the first day, then 1 tablet daily for 4 days 24h 5 day(s) Active Cetirizine HCl 10 MG Orally Once a day 1 tablet 24h Jul, Aug, 30 day(s) Active Promethazine-Codeine 6.25-10 MG/5ML Orally every 6 hrs 5 ml as needed 6h 30 Jun, 2016 4 Jul, 2016 05 days Active RESULTS No Results PROCEDURES Procedure Date Ordered Related Diagnosis Body Site Office Visit, Est Pt., Level 3 Jul 18, 2016 IMMUNIZATIONS No Known Immunizations
--- OUTSIDE RECORDS SUMMARY | 2017-08-06 20:09 | XMS REPORT | CCD ---
Author Author JANEY JARVIS Organization Unknown Address [address] [place] [address] Care Team Providers Care Road Freight Firer Name Role Phone SARDIS ER, SANDRA DO Attphys SARDIS ER, SANDRA DO Prisurg Allergies Allergy Code Allergy Type Reaction Status PCN (penicillin) 0 Drug allergy Active ZOFRAN 82856 Drug allergy Active PRILOSEC 917662 Drug allergy Active HYDROCODONE 5489 Drug allergy Active Active Medications Unknown or Not Available. Problems Unknown or Not Available. Procedures Procedure Code Procedure Type Date CT ABD AND PELVIS W/CONTRAST 577490171 SNOMED CT 2016 ABDOMEN 2 VIEW DECUB/UPRIGHT 830848918 SNOMED CT [address] 11/06/2016 C REACTIVE PROTEIN 75967358 SNOMED CT 11/06/[address] 08[address]24 [address] 11/06/2016 UA ROUTINE C&S IF IND 397968749 SNOMED CT 11/06/2016 COMPREHENSIVE METABOLIC PANEL 561876032 SNOMED CT 2016 CBC W/ AUTO DIFF (RFLX MAN DIFF IF IND) 9143611 SNOMED CT 11/06/2016 ^CBC W/AUTO DIFF 1392793 SNOMED CT 11/06/2016 ^UA WITH MICRO 680290282 SNOMED CT 11/06/2016 LOCM 300-349 MG/ML, PER ML 479937005 SNOMED CT 11/07/2016 Results COMPREHENSIVE METABOLIC PANEL - Collect Date/Time: 11/06/2016 21:25 Test Name Code Test Result Test Units Test Ref Range GLUCOSE 2345-7 98 MG/DL L=70 H=100 SODIUM 2951-2 140 MEQ/L L=135 H=148 POTASSIUM 2823-3 3.7 MEQ/L L=3.5 H=5.3 CHLORIDE 2075-0 104 MEQ/L L=96 H=110 CO2 2028-9 23 MEQ/L L=22 H=29 BUN 3094-0 9 MG/DL L=8 H=22 CREATININE 2160-0 0.9 MG/DL L=0.6 H=1.6 SGOT/AST 1920-8 18 IU/L L=10 H=40 SGPT/ALT 1742-6 12 IU/L L=8 H=54 ALK PHOS 6768-6 99 IU/L L=35 H=115 TOTAL PROTEIN 2885-2 7.7 G/DL L=5.5 H=8.5 ALBUMIN 1751-7 4.3 G/DL L=3.1 H=5.4 TOTAL BILI 1975-2 0.5 MG/DL L=0.0 H=1.5 CALCIUM 14017-5 9.2 MG/DL L=8.2 H=10.6 AGE 36 yrs GFR NonAA 70 GFR AA 85 eGFR >60 N/A eGFR AA* >60 N/A LIPASE - Collect Date/Time: 11/06/2016 21:25 Test Name Code Test Result Test Units Test Ref Range LIPASE 3040-3 52 U/L L=8 H=78 CBC W/ AUTO DIFF (RFLX MAN DIFF IF IND) - Collect Date/Time: 11/06/2016 21:25 Test Name Code Test Result Test Units Test Ref Range WBC 84658-7 7.2 TH/CMM L=4.5 H=10.8 RBC 789-8 4.46 ML/CMM L=4.20 H=5.40 HGB 718-7 13.0 G/DL L=12.0 H=16.0 HCT 4544-3 38.8 % L=37.0 H=47.0 MCV 87 FL L=81 H=99 MCH 29.1 PG L=27.0 H=33.0 MCHC 33.5 G/DL L=31.0 H=36.0 RDW SD 41 FL L=36 H=50 RDW CV 13.1 % L=0.0 H=14.8 MPV 8.8 FL L=9.3 H=12.5 PLT 777-3 292 TH/CMM L=130 H=440 NRBC# 0.00 TH/CMM L=0.00 H=0.00 NRBC% 0.0 /100WBC L=0.0 H=2.0 %NEUT 58.1 % %LYMP 28.1 % %MONO 5.7 % %EOS 6.8 % %BASO 1.0 % #NEUT 4.18 TH/CMM L=2.10 H=8.20 #LYMP 2.02 TH/CMM L=0.90 H=5.20 #MONO 0.41 TH/CMM L=0.16 H=1.00 #EOS 0.49 TH/CMM L=0.00 H=0.80 #BASO 0.07 TH/CMM L=0.00 H=0.20 MANUAL DIFF NOT IND N/A PT/PTT - Collect Date/Time: 11/06/2016 21:25 Test Name Code Test Result Test Units Test Ref Range PROTIME 5964-2 10.6 SEC L=9.9 H=11.9 INR 36392-8 1.0 PTT 3173-2 27.0 SEC L=22.2 H=37.2 UA ROUTINE C&S IF IND - Collect Date/Time: 11/06/2016 21:05 Test Name Code Test Result Test Units Test Ref Range COLOR YELLOW N/A NL: YELLOW APPEARANCE CLEAR N/A NL: CLEAR SPEC GRAV >=1.030 N/A NL: 1.002 - 1.022 pH 5.5 N/A NL: 5 - 9 PROTEIN NEGATIVE N/A NL: NEGATIVE mg/dl GLUCOSE NEGATIVE N/A NL: NEGATIVE mg/dl KETONE NEGATIVE N/A NL: NEGATIVE mg/dl BILIRUBIN NEGATIVE N/A NL: NEGATIVE BLOOD SMALL N/A NL: NEGATIVE NITRITE NEGATIVE N/A NL: NEGATIVE LEUK SCREEN NEGATIVE N/A NL: NEGATIVE MICRO INDICATED? SEE BELOW N/A WBC/HPF 0-5 N/A NL: NEGATIVE RBC/HPF 0-5 N/A NL: NEGATIVE CASTS/LPF NEGATIVE N/A NL: NEGATIVE CRYSTALS TRACE AMORPH N/A NL: NEGATIVE MUCOUS THRDS 1+ N/A NL: NEGATIVE BACTERIA FEW N/A NL: NEGATIVE EPITH CELLS FEW SQUAMOUS N/A NL: NEGATIVE TRICHOMONAS NEGATIVE N/A NL: NEGATIVE YEAST NEGATIVE N/A NL: NEGATIVE CULT SET UP? NO N/A C REACTIVE PROTEIN - Collect Date/Time: 11/06/2016 21:25 Test Name Code Test Result Test Units Test Ref Range C REACTIVE PROTEIN 1988- 0.6 MG/DL L=0.0 H= 1.0 LACTIC ACID - Collect Date/Time: 11/06/2016 21:25 Test Name Code Test Result Test Units Test Ref Range LACTIC ACID 2524-7 1.3 mmol/L L=0.5 H=1.6 Function Status Unknown or Not Available. History of Immunizations Unknown or Not Available. Plan of Treatment Unknown or Not Available. Social History Smoking Status Code Start Date End Date Never smoker [id number] Vital Signs Unknown or Not Available. Function Status Unknown or Not Available. Goals Unknown or Not Available. ASSESSMENTS Unknown or Not Available. Health Concerns Section Unknown or Not Available.
[2017-08-06] MEDS ORDERED: diphenhydrAMINE 50 MG/ML INJ (BENADRYL) IV STA (21:46)
[2017-08-06] MEDS ORDERED: NS IV 1000 ML 1,000 ML IV STA (21:46)
[2017-08-06] MEDS ORDERED: PROMETHAZINE INJ 25 MG/ML (PHENERGAN) AMP IVP STA (21:46)
[2017-08-06] MEDS ORDERED: KETOROLAC 30 MG/ML VIAL IVP STA (21:46)
[2017-08-06] MEDS ORDERED: DEXAMETHASONE 10 MG/ML (DECADRON) 1 ML VIAL IV ONE (22:00)
--- NOTE | 2017-08-06 22:04 | ED Headache ---
General Chief Complaint: Head/Cervical Problems Stated Complaint: MIGRAINE X1 WEEK, VISION COMES AND GOES IN L EYE Nursing Triage Note: PT STATES HAS HAD MIGRAINE FOR APPROX 1 WEEK, HAD L EYE BLINDNESS THEN SEES CRYSTALS, N/V, 9/10 PAIN. PT HAS HX OF MIGRAINES Nursing Sepsis Screen: No Definite Risk Source: patient Exam Limitations: no limitations History of Present Illness Date Seen by Provider: Aug 06, 2017 Time Seen by Provider: 21:30 Initial Comments Here with report of typical but longer acting migraine syndrome involving the left frontal area in the left eye. Complains of throbbing that has not gotten better with her medicines. Also has disturbance of the left eye that makes her see bright lights and crystals. This also is typical. Reports nausea and vomiting. Denies fever or weakness. Timing/Duration: 1 week Severity/Quality: moderate, pressure Location: frontal Prior Headaches/Recent Trauma: frequent headaches Modifying Factors: worse with exposure to light Associated Symptoms: No confusion, No fever/chills, No loss of consciousness, No nasal congestion, No nasal drainage, No numbness in legs/feet, No seizures, No stiff neck, vision changes Allergies and Home Medications Allergies Coded Allergies: Penicillins (Verified Allergy, Unknown, 04/17/16) acetaminophen (Verified Allergy, Unknown, 04/17/16) hydrocodone (Verified Allergy, Unknown, 04/17/16) omeprazole (Verified Allergy, Unknown, 04/17/16) ondansetron (Verified Allergy, Unknown, 04/17/16) Home Medications Topiramate 50 Mg Tablet, (Reported) Constitutional: see HPI, No chills, No fever Eyes: See HPI, Photophobia Ears, Nose, Mouth, Throat: no symptoms reported Respiratory: no symptoms reported Cardiovascular: no symptoms reported Gastrointestinal: see HPI, nausea, vomiting Genitourinary: no symptoms reported Musculoskeletal: no symptoms reported Skin: no symptoms reported Psychiatric/Neurological: See HPI, Headache All Other Systems Reviewed Negative Unless Noted: Yes Past [id number]-[id number] Hx Patient Social History Alcohol Use: Denies Use Recreational Drug Use: No Smoking Status: Never a Smoker 2nd Hand Smoke Exposure: No Recent Foreign Travel: No Contact w/Someone Who Travel: No Recent Infectious Disease Expo: No Recent Hopitalizations: Yes (Robotic hyst last ) Immunizations Up To Date Tetanus Booster (TDap): Unknown Seasonal Allergies Seasonal Allergies: Yes Surgeries History of Surgeries: Yes (kidney stone removal, L knee scope, Robotic vag hyst 10/05/16-DR. 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 Genitourinary Genitourinary Disorders: Kidney Stones Gastrointestinal History of Gastrointestinal Di: Yes (celiac disease) Gastrointestinal Disorders: Chronic Diarrhea Musculoskeletal History of Musculoskeletal Dis: Yes Musculoskeletal Disorders: Chronic Back Pain Endocrine History of Endocrine Disorders: No (obesity) Cancer History of Cancer: No Psychosocial History of Psychiatric Problem: Yes Behavioral Health Disorders: Anxiety Integumentary History of Skin or Integumenta: No Blood Transfusions History of Blood Disorders: No Adverse Reaction to a Blood Tr: No Reviewed Nursing Assessment Reviewed/Agree w Nursing PMH: Yes Family Medical History Significant Family History: No Pertinent Family Hx Family Medial History: Alcoholism 19 MOTHER Hypertension 19 FATHER Psychosocial problem 19 MOTHER G8 BROTHER Physical Exam Vital Signs Vital Sign - Last 12Hours 08/06/17 20:10 Temp 98.1 Pulse 80 Resp 18 B/P (MAP) 126/82 (97) Pulse Ox 96 Capillary Refill : Less Than 3 Seconds General Appearance: WD/WN, no apparent distress HEENT: PERRL/EOMI, pharynx normal Neck: full range of motion, supple Cardiovascular: regular rate, rhythm, no murmur Respiratory: lungs clear, normal breath sounds Gastrointestinal: non tender, soft Back: normal inspection, no CVA tenderness, no vertebral tenderness Extremities: non-tender, normal inspection Psychiatric: alert, oriented x 3 Crainal Nerves: normal hearing, normal speech, PERRL Coordination/Gait: normal gait Motor/Sensory: no motor deficit, no sensory deficit Skin: normal color, warm/dry Progress/Results/Core Measures Results/Orders My Orders Orders - PAUL ROYAL MD Promethazine Injection (Phenergan Injec (08/06/17 21:46) Ns Iv 1000 Ml (Sodium Chloride 0.9%) (08/06/17 21:46) Saline Lock/Iv-Start (08/06/17 21:46) Diphenhydramine Injection (Benadryl Inje (08/06/17 21:46) Dexamethasone Injection (Decadron Inject (08/06/17 22:00) Ketorolac Injection (Toradol Injection) (08/06/17 21:46) Medications Given in ED Current Medications Medications Dose Ordered Sig/Bienvenido Route Start Time Stop Time Status Last Admin Dose Admin Dexamethasone Sodium Phosphate 10 mg ONCE ONCE IV 08/06/17 22:00 08/06/17 22:01 DC 08/06/17 22:01 10 MG Vital Signs/I&O Vital Sign - Last 12Hours 08/06/17 20:10 Temp 98.1 Pulse 80 Resp 18 B/P (MAP) 126/82 (97) Pulse Ox 96 Blood Pressure Mean: 97 Progress Note : Progress Note Seen and evaluated. IV, normal saline 1 L bolus, Toradol 30 mg IV, Phenergan 25 mg IV, Benadryl 25 mg IV and Decadron 10 mg IV ordered. Monitor patient. 2254: Pain is little better but not greatly resolved. We will give her Fioricet and patient states that she would like to just go home and rest after that. Discharged home with return precautions. Patient verbalize understanding instructions and agreement with plan. Departure Impression Impression: Primary Impression: Migraine Qualified Codes: G43.009 - Migraine without aura, not intractable, without status migrainosus Disposition: 01 HOME, SELF-CARE Condition: Improved Departure-Patient Inst. Decision time for Depature: 22:57 Referrals: TRERI IVY MD (PCP/Family) Primary Care Physician Patient Instructions: Migraine Headache (DC) PAUL ROYAL MD Aug 06, 2017 22:04
[2017-08-06] MEDS ORDERED: ACET/BUTAL/CAFF (FIORICET) TAB PO PRN (23:00)
[2017-08-06 23:11] VITALS: BP 122/78
== END 2017-08-06 23:10 | disposition home or self-care (01) ==
LOC: EDUNIT# 20:02 → ER 20:04
DX: G43.909 Migraine, unspecified, not intractable, without status migrainosus (principal); F41.9 Anxiety disorder, unspecified; E66.9 Obesity, unspecified; G40.909 Epilepsy, unspecified, not intractable, without status epilepticus; I25.2 Old myocardial infarction; Z87.442 Personal history of urinary calculi; Z68.36 Body mass index [BMI] 36.0-36.9, adult; Z90.710 Acquired absence of both cervix and uterus; Z87.42 Personal history of other diseases of the female genital tract; Z98.51 Tubal ligation status
CPT/HCPCS: 96361; 96374; 96375